=== PATIENT | male | born 1950 | race Caucasian/White ===

== ENCOUNTER 2021-07-24 08:45 | Day surgery (SDC) | payer MEDICARE ==
--- NOTE | 2021-07-23 09:51 | HP ---
HISTORY AND PHYSICAL CHIEF COMPLAINT: Left shoulder pain. HISTORY OF PRESENT ILLNESS: This patient is a 71-year-old [id number] retired gentleman who presents with left shoulder pain after an injury on 04/12/2021. He flipped his lawnmower over, landing on his left shoulder. He notes pain and stiffness ever since. He denies previous problems. He is having a difficult time with any attempted overhead use and at night. PAST MEDICAL HISTORY: Significant for asthma, hypertension, type 2 diabetes. PAST SURGICAL HISTORY: Significant for previous wrist fusion. CURRENT MEDICATIONS: Ibuprofen. ALLERGIES: He notes allergies to PENICILLIN. FAMILY HISTORY: Noncontributory. SOCIAL HISTORY: Negative for current tobacco or alcohol use. REVIEW OF SYSTEMS: Sixteen-point review of systems is otherwise reviewed and is noncontributory. PHYSICAL EXAMINATION: On examination, the patient is approximately 5 feet 7 inches, 270 pounds of endomorphic habitus. HEENT exam is nonfocal. Neck is supple. He is tender about the left shoulder anterior subacromial space. He has moderate crepitus. Active range of motion: Forward elevation 50 degrees, external rotation with the arm at side 30 degrees, internal rotation to the lateral hip. Passively I am able to forward-elevate him to 100 degrees. Motor strength 4+ over 5 for external rotation, 3/5 for abduction. Impingement test, Neer test and Speed test are positive. His distal neurovascular exam appears intact in the left upper extremity. MRI report left shoulder 07/06/2021 shows nonspecific synovitis along with increased signal along the supraspinatus insertion. IMPRESSION: 1. Left shoulder adhesive capsulitis/synovitis. 2. Left shoulder impingement with possible partial-thickness rotator cuff tear. RECOMMENDATIONS: I talked to the patient at length regarding his condition along with treatment options. At this point he remains quite symptomatic despite a period of rest, anti- inflammatories and home exercise program. After thorough discussion, he opts to proceed with surgery. We will plan to proceed with arthroscopic evaluation with possible rotator cuff debridement versus repair in addition to left shoulder manipulation under anesthesia along with possible partial synovectomy. Risks and benefits were discussed at length in layman's terms. We will likely perform that as an outpatient procedure. MMODL / IJN: [id number] /
[~2021-07-24 08:45] MED LIST: DEXAMETHASONE SOD PHOSPHATE 4 MG/ML 1 ML VIAL IV ONE; HYDROmorphone 0.5 MG/0.5 ML SYRINGE IVP PRN; LACTATED RINGERS 1,000 ML IV SCH; ONDANSETRON 4 MG/2 ML VIAL IVP ONE; ceFAZolin 3 GM in SODIUM CHLORIDE 0.9% 100 ML IVPB PRN
[2021-07-24] MEDS ORDERED: MIDAZOLAM 2 MG/2 ML VIAL IVP ONE ×2 (08:59→09:59)
[2021-07-24] MEDS ORDERED: ALBUTEROL NEBULIZED 2.5 MG/3 ML INHALATION STA (09:36)
[2021-07-24 09:46] LABS: Glucose,Whole Blood 137 mg/dL (75-99)
--- NOTE | 2021-07-24 10:07 | P.ANPRN ---
Procedure Note - Anesthesia - Nerve Block Performed Left Interscalene Single Time Out Performed: Yes ([id number]) Date of Procedure: 07/24/21 Procedure Start Time: 10:00 Procedure Stop Time: 10:04 Indication: Acute Post-Operative Pain, Analgesia, Dx/Pain Location, Requested by Surgeon Sedation Type: Sedate with meaningful contact maintained Preparation: Sterile Prep, Sterile Dressing Position: Sitting Catheter: None Needle Types: Pajunk Needle Gauge: 21 Ultrasound used to visualize needle placement: Yes Ultrasound used to observe medication spread: Yes Injectate: 0.5% Ropivacaine (see comment for volume) (20 mL mixed with 4 mg of dexamethasone) Blood Aspirated: No Pain Paresthesia on Injection Noted: No Resistance on Injection: Normal Image Stored and Saved: Yes Events: Uneventful and Well Tolerated
[2021-07-24] MEDS ORDERED: DEXAMETHASONE SOD PHOSPHATE 4 MG/ML 1 ML VIAL ONE (10:55)
[2021-07-24] MEDS ORDERED: LIDOCAINE 1% INJ 10MG/ML (20 ML MDV) ONE (10:55)
[2021-07-24] MEDS ORDERED: PHENYLEPHRINE-0.9% NACL SYG 1,000 MCG/10 ML SYRINGE ONE (10:55)
[2021-07-24] MEDS ORDERED: fentaNYL (PF) 50 MCG/ML 2 ML AMP ONE (10:55)
[2021-07-24] MEDS ORDERED: PROPOFOL 10 MG/ML 20 ML VIAL IV ONE (10:55)
[2021-07-24] MEDS ORDERED: SUCCINYLCHOLINE CHLORIDE VIAL 200 MG/10 ML VIAL IV ONE (10:55)
[2021-07-24] MEDS ORDERED: ROPIVACAINE 5 MG/ML 30 ML VIAL ONE (10:55)
[2021-07-24] MEDS ORDERED: EPINEPHrine (PF) 1 ML in SODIUM CHLORIDE 0.9% IRRIGATIO 3,000 ML IRRIGATION ONE ×8 (11:10)
--- NOTE | 2021-07-24 12:09 | P.OP ---
Date of Procedure: 07/24/21 Preoperative Diagnosis: Left partial thickness rotator cuff tear/glenohumeral joint synovitis Postoperative Diagnosis: Same in addition to partial tear interarticular portion along the biceps, clavicular joint arthritis Procedure(s) Performed: Left shoulder arthroscopic rotator cuff debridement/subacromial decompression/biceps tenotomy/distal clavicular resection Anesthesia: laly MARTINS Surgeon: Akbar Morris Bindery Leadperson #1: Sergey Robin Estimated Blood Loss (ml): 10 Pathology: none sent Condition: stable Disposition: PACU Indications for Procedure: The patient is a 71-year-old male who presents with progressive left shoulder pain and weakness after a previous injury despite conservative measures. A discussion of the risks and benefits of operative intervention versus continued conservative measures was made with patient. He opted to proceed with surgery. Operative risks to include infection, neurovascular injury, development of blood clots, possible incomplete resolution of symptoms, possible worsening symptoms and need for subsequent procedures was discussed. Informed consent was obtained. Operative Findings: As below Description of Procedure: The patient was brought to the operating room, and after induction of general anesthesia was placed in a beachchair position. A preoperative interscalene block was placed for postoperative analgesia. I examined the left shoulder. There was no gross block to passive motion or gross glenohumeral instability. The left upper extremity was prepped and draped in normal fashion. The bony outlines the acromion, distal clavicle, and coracoid process were outlined with a skin marker. The glenohumeral joint was inflated with 50 mL of saline utilizing a spinal needle from posterior approach. A posterior portal was made through a 5 mm skin incision 1 cm medial and inferior to the posterior lateral border time. A blunt trocar was used to easily into the joint. Diagnostic arthroscopy was performed. An anterior portal was made just lateral to the coracoid process entering the joint above the subscapularis tendon. The subscapularis tendon appeared to be intact. Anterior labrum was intact. The inferior recess was inspected. The posterior labrum was intact. There was a high-grade partial-thickness tear of the long head of the biceps involving interarticular portion. It was elected to proceed with release at this point. This was released from the superior labrum with electrocautery and was allowed to retract to the bicipital groove. On inspection the rotator cuff, the intra- articular portion appear to be intact. The arthroscope was placed into the subacromial space. A lateral portal was made 2 centimeters inferior to the anterior lateral border of the acromion. Significant bursitis was noted in the subacromial space. This was debrided with motorized shaver. The soft tissue on the undersurface of the acromion was debrided with a motorized shaver and electrocautery clearly defining the anterior medial and lateral borders as well as the distal clavicle. An anterior inferior acromioplasty was performed with a motorized ellen starting anterolateral, then extending this posteriorly, then extending this medially. I converted to a flat acromion and this was verified in the posterior and lateral viewing portals. The distal clavicle appear to be hypertrophic and was impingement subacromial space. The distal 4 mm was resected with a motorized ellen. The rotator cuff was inspected. There was a partial thickness tear involving the supraspinatus insertion. This involved approximately 10-20% of the tendon thickness. This was debrided back to stable base with a motorized shaver. The arthroscope was then removed. The portals were closed with simple 3-0 nylon sutures. A sterile dressing was applied in addition to a sling. The patient was then awoken from general anesthesia and transferred to recovery room in good condition. Blood loss was estimated at 10 mL. No complications were incurred. Sponge and needle counts were correct in the case. Sergey CABRERA assisted and the major components of the case to include arm positioning, arthroscopy, and debridement.
[2021-07-24 12:12] VITALS: TEMP 97.1
[2021-07-24 12:47] VITALS: BP 150/73; PULSE 95; RESP 15
== END 2021-07-24 13:44 | disposition home or self-care (01) ==
LOC: OR 08:45
PROVIDERS: ATTEND Orthopaedic Surgery
DX: M75.02 Adhesive capsulitis of left shoulder (principal); M65.9 Synovitis and tenosynovitis, unspecified; M25.812 Other specified joint disorders, left shoulder; M24.112 Other articular cartilage disorders, left shoulder; M13.812 Other specified arthritis, left shoulder; N28.9 Disorder of kidney and ureter, unspecified; J45.909 Unspecified asthma, uncomplicated; I10 Essential (primary) hypertension; E11.9 Type 2 diabetes mellitus without complications; Z98.1 Arthrodesis status; Z79.52 Long term (current) use of systemic steroids; Z79.899 Other long term (current) drug therapy; Z79.1 Long term (current) use of non-steroidal anti-inflammatories (NSAID); Z88.0 Allergy status to penicillin
CPT/HCPCS: 94640; 64415; 76942; 29823; 29824; J2250; J0330; J1100; J0690; J2405; J0171; J2001; J3010; J2795; J2370; J2704; J1170

== ENCOUNTER 2022-11-04 13:03 | Inpatient (IN) | payer MEDICARE ==
[2022-11-04] MEDS ORDERED: KETOROLAC 15 MG/ML 1 ML VIAL IM STA (13:33)
--- NOTE | 2022-11-04 13:39 | ED ---
General Adult HPI - General Chief complaint: Fall Stated complaint: Fell off porch L knee and leg pain Time Seen by Provider: 11/04/22 13:18 Source: patient, RN notes reviewed Mode of arrival: ambulatory Limitations: no limitations - History of Present Illness Initial comments: 72-year-old male presented to the emergency department with chief complaint of left leg pain. He states that he fell on his porch on and has had progressive increase in pain since then in his left leg. He reports increase in swelling since that time. He states that he has been elevating. He denies taking anything for pain. He states the pain is worse with even light touch. Denies renal and hepatic impairment. Denies shortness of breath, chest pain. Denies hitting his head, loss of consciousness. Denies fever. Past medical history includes diabetes and hypertension. - Related Data Home Medications Medication Instructions Recorded Confirmed Glimepiride [Amaryl] 2 mg PO DAILY 07/18/21 11/04/22 Pioglitazone [Actos] 45 mg PO DAILY 07/18/21 11/04/22 lisinopriL [Zestril] 20 mg PO DAILY 07/18/21 11/04/22 amLODIPine [Norvasc] 2.5 mg PO DAILY 11/04/22 11/04/22 metFORMIN HCL ER [Glucophage XR] 1,000 mg PO BID 11/04/22 11/04/22 Allergies Allergy/AdvReac Type Severity Reaction Status Date / Time Penicillins Allergy Unknown Verified 11/04/22 18:10 Childhood Review of Systems ROS Statement: Those systems with pertinent positive or pertinent negative responses have been documented in the HPI. ROS Other: All systems not noted in ROS Statement are negative. Past Medical History Past Medical History: Asthma, Diabetes Mellitus, Hypertension History of Any Multi-Drug Resistant Organisms: None Reported Past Surgical History: Orthopedic Surgery Additional Past Surgical History / Comment(s): left shoulder, eye surgery Past Psychological History: No Psychological Hx Reported Smoking Status: Never smoker Past Alcohol Use History: None Reported Past Drug Use History: None Reported General Exam Limitations: no limitations General appearance: alert, in no apparent distress Head exam: Present: atraumatic, normocephalic, normal inspection Eye exam: Present: normal appearance Neck exam: Present: normal inspection. Absent: tenderness, meningismus, lymphadenopathy Respiratory exam: Present: normal lung sounds bilaterally. Absent: respiratory distress, wheezes, rales, rhonchi, stridor Cardiovascular Exam: Present: regular rate, normal rhythm, normal heart sounds. Absent: systolic murmur, diastolic murmur, rubs, gallop, clicks Extremities exam: Present: other (Tenderness to palpation of left leg at the knee, left chapa even with light touch, DP pulses 2+, edema to the left lower extremity, abrasion to the left knee) Back exam: Present: normal inspection Neurological exam: Present: alert, oriented X3 Psychiatric exam: Present: normal affect, normal mood Skin exam: Present: warm, dry, intact, erythema, abrasion (Abrasion to left knee), other (Edema to left lower extremity). Absent: rash Course Vital Signs 11/04/22 11/04/22 11/04/22 13:07 16:46 17:42 Temperature 98.3 F 97.9 F Pulse Rate 99 72 80 Respiratory 18 16 16 Rate Blood Pressure 153/86 140/68 181/80 O2 Sat by Pulse 98 99 96 Oximetry 11/04/22 11/04/22 18:14 18:20 Temperature 98.2 F 98.2 F Pulse Rate 76 76 Respiratory 16 Rate Blood Pressure 160/62 160/72 O2 Sat by Pulse 96 96 Oximetry Medical Decision Making - Medical Decision Making Was pt. sent in by a medical professional or institution ([facility], [facility], urgent care, hospital, or residential...) When possible be specific @ -No Did you speak to anyone other than the patient for history (EMS, parent, family, police, friend...)? What history was obtained from this source @ -No Did you review nursing and triage notes (agree or disagree)? Why? @ -I reviewed and agree with nursing and triage notes Were old charts reviewed (outside hosp., previous admission, EMS record, old EKG, old radiological studies, urgent care reports/EKG's, residential records)? Report findings @ -No old charts were reviewed Differential Diagnosis (chest pain, altered mental status, abdominal pain women, abdominal pain men, vaginal bleeding, weakness, fever, dyspnea, syncope, headache, dizziness, GI bleed, back pain, seizure, CVA, palpatations, mental health, musculoskeletal)? @ -Differential Musculoskeletal Muscular strain, contusion, ligament sprain, fracture, arthritis, septic arthritis, bursitis, cellulitis, muscle spasm, nerve compression, DVT, arterial occlusion, herpes zoster, electrolyte abnormality, tumor.... This is not meant to be in all inclusive list EKG interpreted by me (3pts min.). @ -None X-rays interpreted by me (1pt min.). @ -X-ray of left knee showed no acute fracture, x-ray of left tib-fib show no acute fracture CT interpreted by me (1pt min.). @ -CT of left knee showed suspect a torn and extruded medial meniscus, underlying bicompartmental OA, anterior soft tissue swelling, small knee joint effusion, small Ray's cyst U/S interpreted by me (1pt. min.). @ -Ultrasound left lower extremity showed no DVT What testing was considered but not performed or refused? (CT, X-rays, U/S, labs)? Why? @ -None What meds were considered but not given or refused? Why? @ -None Did you discuss the management of the patient with other professionals (professionals i.e. , PA, [facility] [employer], lab, RT, psych nurse, social media marketing specialist, corporation lawyer, teacher, life science technical officer, manager of case)? Give summary @ -No Was smoking cessation discussed for >3mins.? @ -No Was critical care preformed (if so, how long)? @ -No Were there social determinants of health that impacted care today? How? (Homelessness, low income, unemployed, alcoholism, drug addiction, transp ortation, low edu. Level, literacy, decrease access to med. care, assisted, rehab)? @ -No Was there de-escalation of care discussed even if they declined (Discuss DNR or withdrawal of care, Hospice)? DNR status @ -No What co-morbidities impacted this encounter? (DM, HTN, Smoking, COPD, CAD, Cancer, CVA, ARF, Chemo, Hep., AIDS, mental health diagnosis, sleep apnea, morbid obesity)? @ -DM Was patient admitted / discharged? Hospital course, mention meds given and route, prescriptions, significant lab abnormalities, going to OR and other pertinent info. @ -Admitted. Patient presented to emergency department with chief complaint of left leg pain following a fall. Patient is very tender to the left lower extremity from the knee down to the ankle. X-ray of the left knee and left tib- fib were obtained which showed no acute fracture. Ultrasound of the left lower extremity showed no DVT. Patient was given 15 mg of Toradol and 2 mg of morphine which did not help his pain. Upon reevaluation after the pain medication he states that his pain was still 10 out of 10. Patient was evaluated by my attending Dr. Adam who recommended labs and CT of the knee be obtained. CT of the left knee was obtained which showed suspected torn and extruded medial meniscus. CBC showed WBC 5.3, hemoglobin 13.2, hematocrit 40.1; CMP showed sodium 140, potassium 4.7, chloride 102, creatinine 1.2; creatinine kinase 199. Patient admitted for pain control and orthopedic evaluation in the morning. Dr. Adam spoke with Dr. Dunn, the admitting physician. Patient stable at time of admission. Undiagnosed new problem with uncertain prognosis? @ -No Drug Therapy requiring intensive monitoring for toxicity (Heparin, Nitro, Insulin, Cardizem)? @ -No Were any procedures done? @ -No Diagnosis/symptom? @ -Left knee injury Acute, or Chronic, or Acute on Chronic? @ -acute Uncomplicated (without systemic symptoms) or Complicated (systemic symptoms)? @ -uncomplicated Side effects of treatment? @ -No Exacerbation, Progression, or Severe Exacerbation? @ -No Poses a threat to life or bodily function? How? (Chest pain, [place], [place], pneumonia, PE, COPD, DKA, ARF, appy, cholecystitis, CVA, Diverticulitis, Homicidal, Suicidal, threat to staff... and all critical care pts) @ -No - Lab Data Result diagrams: 11/04/22 16:00 11/04/22 16:00 Lab Results 11/04/22 11/04/22 11/04/22 Range/Units 16:00 16:00 16:00 WBC 5.3 (3.8-10.6) k/uL RBC 4.31 (4.30-5.90) m/uL Hgb 13.2 (13.0-17.5) gm/dL Hct 40.1 (39.0-53.0) % MCV 92.9 (80.0-100.0) fL MCH 30.7 (25.0-35.0) pg MCHC 33.0 (31.0-37.0) g/dL RDW 14.4 (11.5-15.5) % Plt Count 202 (150-450) k/uL MPV 8.2 Neutrophils % 72 % Lymphocytes % 17 % Monocytes % 7 % Eosinophils % 2 % Basophils % 0 % Neutrophils # 3.9 (1.3-7.7) k/uL Lymphocytes # 0.9 L (1.0-4.8) k/uL Monocytes # 0.4 (0-1.0) k/uL Eosinophils # 0.1 (0-0.7) k/uL Basophils # 0.0 (0-0.2) k/uL PT 9.5 (9.0-12.0) sec INR 0.9 (<1.2) APTT 22.2 (22.0-30.0) sec Sodium 140 (137-145) mmol/L Potassium 4.7 (3.5-5.1) mmol/L Chloride 102 (98-107) mmol/L Carbon Dioxide 28 (22-30) mmol/L Anion Gap 10 mmol/L BUN 21 H (9-20) mg/dL Creatinine 1.20 (0.66-1.25) mg/dL Est GFR (CKD-EPI)AfAm 71 (>60 ml/min/1.73 sqM) Est GFR (CKD-EPI)NonAf 61 (>60 ml/min/1.73 sqM) Glucose 191 H (74-99) mg/dL Calcium 8.8 (8.4-10.2) mg/dL Total Bilirubin 0.7 (0.2-1.3) mg/dL AST 33 (17-59) U/L ALT 28 (4-49) U/L Alkaline Phosphatase 70 (38-126) U/L Creatine Kinase 199 H (55-170) U/L Total Protein 7.8 (6.3-8.2) g/dL Albumin 4.4 (3.5-5.0) g/dL Disposition Clinical Impression: Fall, Left knee injury Disposition: ADMITTED IP TO THIS HOSP Condition: Stable Is patient prescribed a controlled substance at d/c from ED?: No
--- NOTE | 2022-11-04 14:05 | XR ---
EXAMINATION TYPE: XR tibia fibula LT DATE OF EXAM: 11/04/2022 COMPARISON: None HISTORY: Fall, pain TECHNIQUE: 2 view left tibia and fibula FINDINGS: There is narrowing of the medial compartment joint space of the left knee. Small medial tib ial plateau spurs present. Ankle mortise is intact. Soft tissues may have some swelling of the dorsal calf. Follow up exams can be performed 7-10 days from acute trauma for continued pain.. IMPRESSION: 1. No acute osseous abnormality left tibia and fibula
--- NOTE | 2022-11-04 14:07 | XR ---
EXAMINATION TYPE: XR knee complete LT DATE OF EXAM: 11/04/2022 COMPARISON: None HISTORY: Fall, pain TECHNIQUE: 3 view left knee FINDINGS: There is narrowing of the medial compartment joint space. Small medial tibial plateau and m edial femoral condylar spurs are present. No joint effusion is evident. Small posterior patellar spur s are present superiorly and inferiorly. No acute fracture or dislocation is evident. IMPRESSION: 1. No acute osseous abnormality left knee. 2. Mild to moderate degenerative changes medial compartment left knee
--- NOTE | 2022-11-04 15:04 | US ---
EXAMINATION TYPE: US venous doppler duplex LE LT DATE OF EXAM: 11/04/2022 2:45 PM COMPARISON: NONE CLINICAL INDICATION: Male, 72 years old with history of pain, swelling; Left leg pain SIDE PERFORMED: Left TECHNIQUE: The lower extremity deep venous system is examined utilizing real time linear array sonog john with graded compression, doppler sonography and color-flow sonography. VESSELS IMAGED: Common Femoral Vein Deep Femoral Vein Greater Saphenous Vein * Femoral Vein Popliteal Vein Small Saphenous Vein * Proximal Calf Veins (* superficial vessels) *Difficult and limited study due to patient body habitus Left Leg: Appears negative for DVT Left popliteal fossa - 4.7 x 1.3 x 3.3cm Ray's cyst IMPRESSION: 1. Left lower extremity ultrasound negative for deep venous thrombosis. Exam is somewhat limited due to body habitus. 2. Left popliteal fossa cyst
[2022-11-04] MEDS ORDERED: MORPHINE SULFATE 2 MG/ML SYRINGE IVP ONE (15:35)
[2022-11-04 16:16] LABS: Basophils % (A) 0 %; Eosinophils # (A) 0.1 k/uL (0-0.7); Eosinophils % (A) 2 %; HCT 40.1 % (39.0-53.0); HGB 13.2 gm/dL (13.0-17.5); Lymphocytes # (A) 0.9 k/uL (1.0-4.8); Lymphocytes % (A) 17 %; MCH 30.7 pg (25.0-35.0); MCV 92.9 fL (80.0-100.0); Mean Platelet Volume 8.2; Monocytes # (A) 0.4 k/uL (0-1.0); Monocytes % (A) 7 %; Neutrophils # (A) 3.9 k/uL (1.3-7.7); Neutrophils % (A) 72 %; Platelet Count 202 k/uL (150-450); RBC 4.31 m/uL (4.30-5.90); RDW 14.4 % (11.5-15.5); WBC 5.3 k/uL (3.8-10.6)
[2022-11-04 16:30] LABS: INR 0.9 (<1.2); Partial Thromboplastin Time 22.2 sec (22.0-30.0); Prothrombin Time 9.5 sec (9.0-12.0)
[2022-11-04 16:44] LABS: Albumin 4.4 g/dL (3.5-5.0); Calcium 8.8 mg/dL (8.4-10.2); Total Bilirubin 0.7 mg/dL (0.2-1.3); Total Protein 7.8 g/dL (6.3-8.2)
--- NOTE | 2022-11-04 16:47 | CT ---
EXAMINATION TYPE: CT knee LT wo con DATE OF EXAM: 11/04/2022 COMPARISON: Radiograph same day HISTORY: 72-year-old male LT knee pain after fall. TECHNIQUE: Contiguous axial scanning of the left knee without IV contrast. Coronal and sagittal recon structions performed. CT DLP: 320.6 mGycm Automated exposure control for dose reduction was used. FINDINGS: There is anterior soft tissue swelling noted. Extensor mechanism appears intact. A small knee joint e ffusion is nonspecific. Flat lateral patellar tilt/translation. There is tricompartmental degenerative spurring. There is lisa rowing of the medial compartment cartilage and joint space and suspected torn and extruded medial men iscus. The remaining small Ray's cyst measuring 5.6 x 4.0 x 1.5 cm containing a 8 mm loose body. No acute fracture, subluxation, dislocation is seen. IMPRESSION: 1. SUSPECT A TORN AND EXTRUDED MEDIAL MENISCUS. UNDERLYING BICOMPARTMENTAL OA, PARTICULARLY INVOLVING THE MEDIAL COMPARTMENT. 2. ANTERIOR SOFT TISSUE SWELLING. SMALL KNEE JOINT EFFUSION. SMALL RAY'S CYST MEASURING 5.6 X 4.0 C M. 3. NO ACUTE OSSEOUS ABNORMALITY SEEN.
[2022-11-04 16:48] LABS: Potassium 4.7 mmol/L (3.5-5.1)
[2022-11-04] MEDS ORDERED: HYDROmorphone 0.5 MG/0.5 ML SYRINGE IVP STA (17:13)
[2022-11-04] MEDS ORDERED: HYDROmorphone 0.5 MG/0.5 ML SYRINGE IVP PRN (17:19)
[2022-11-04] MEDS ORDERED: NALOXONE 0.4 MG/ML 1 ML VIAL IV PRN (17:19)
[2022-11-04] MEDS ORDERED: ACETAMINOPHEN TAB 325 MG TAB PO PRN (17:19)
[2022-11-04] MEDS ORDERED: DEXTROSE 50% SYRINGE 50 ML IVP PRN ×2 (20:03)
[2022-11-04] MEDS ORDERED: ONDANSETRON 4 MG/2 ML VIAL IVP PRN (20:04)
[2022-11-04] MEDS: INSULIN ASPART (NovoLOG) 100 UNIT/ML VIAL SQ SCH (20:28)
[2022-11-04] MEDS: metFORMIN 500 MG TAB PO SCH (20:28)
[2022-11-04] MEDS: HEPARIN SODIUM,PORCINE/PF 5,000 UNIT/0.5 ML SYRINGE SQ SCH (20:28)
[2022-11-04] MEDS: HYDROmorphone 1 MG/ML 1 ML SYRINGE IVP PRN (20:28)
[2022-11-05] MEDS: HYDROmorphone 1 MG/ML 1 ML SYRINGE IVP PRN ×5 (01:10→20:18)
[2022-11-05] MEDS: PANTOPRAZOLE 40 MG TABLET PO SCH (05:34)
[2022-11-05 05:35] LABS: Glucose,Whole Blood 129 mg/dL (70-110)
[2022-11-05] MEDS: INSULIN ASPART (NovoLOG) 100 UNIT/ML VIAL SQ SCH ×4 (06:27→20:18)
[2022-11-05] MEDS: HEPARIN SODIUM,PORCINE/PF 5,000 UNIT/0.5 ML SYRINGE SQ SCH ×2 (07:48→20:17)
[2022-11-05] MEDS: GLIMEPIRIDE 2 MG TAB PO SCH (07:48)
[2022-11-05] MEDS: metFORMIN 500 MG TAB PO SCH ×2 (07:48→20:17)
[2022-11-05] MEDS: amLODIPine 2.5 MG TAB PO SCH (07:48)
[2022-11-05] MEDS: lisinopriL 20 MG TAB PO SCH (07:48)
[2022-11-05] MEDS: PIOGLITAZONE 45 MG TAB PO SCH (07:48)
--- NOTE | 2022-11-05 09:42 | P.CNOR ---
History of Present Illness - HPI Consult date: 11/05/22 Requesting physician: Krissy Hughes Consult reason: other (Left meniscus injury) History of present illness: History of Presenting Illness Patient is a pleasant 72-year-old male who presented to the ER due to increased left lower extremity pain. Patient states that on , 10/31/2022 he was ambulating on his front porch and when going down the stairs he lost his footing and fell onto his left knee. Patient denies hitting his head or LOC. Patient states he is not on any blood thinners. He does report that he was able to get himself up and felt that he was doing ok. Throughout the weekend he noticed an increase in swelling and pain. He states he is unable to touch the anterior portion of his lower left leg due to increase pain. He has been utilizing elevation and ice therapy. He denies taking any OTC medications for pain. Patient does have a medical history of HTN, asthma, and DM. He has an orthopedic history of his left shoulder. He denies any alcohol, tobacco, or drug use. Patient does live with his spouse and is normally independent. Patient seen and examined this morning. Patient was sitting at the edge of bed with immobilizer present on left lower extremity. Patient does have complaint of increasing pain of the left lower extremity, medications reviewed. Patient was able to reposition himself in bed to allow for immobilizer to be removed for assessment. Patient does have limited ROM of the left knee due to pain and stiffness. Patient states he has been ambulatory in room. Patient denies any fever, chills, or shortness of breath. Review of Systems Pertinent positives and negatives as discussed in HPI, a complete review of systems was performed and all other systems are negative. Physical Examination Patient is awake, alert and oriented. No acute distress. Well developed, hydrated and nourished. Appears stated age. They do not appear septic. On exam, the patient has an abrasion that has scabbed over on the left knee. He has bruising noted that extends down the lower portion of the leg with edema. There is an area on the left chapa that is developing redness, patient has severe tenderness to palpation over this region. Skin is warm, dry. Appropriate color for ethnicity. Nailbeds pink with no cya nosis or clubbing. Upper and right lower extremities are atraumatic in appearance without tendernes s or deformity. No swelling or erythema. Limited ROM to the left knee due to pain and stiffness. FROM to the upper and right lower extremities. Muscle strength is 5/5 bilaterally. Neurosurgical Physician Assistant strength is normal bilaterally. Dorsi/plantar flexion is normal bilaterally. Tendon function is normal. Capillary refill is less than 3 seconds in all extremities. Palpable dorsalis pedis and posterior tibial pulses. Sensation is intact bilaterally, They are intact to light touch sensation in L2 to S1 nerve distribution. Reflexes 2+ bilaterally. Cranial nerves are intact. Compartments are soft and compressible. Assessment and Plan Fall from standing Left knee injury Cellulitis of the left chapa At this time we do not recommend any emergent/urgent orthopedic surgical intervention. Patient may follow-up with Dr. Escobedo's office for further evaluation as needed. 2. Appreciate medical management, recommend IV antibiotics. 3. Pain management - Continue with oral and IV pain medications prn, ice and elevate. 4. GI prophylaxis - protonix 5. DVT prophylaxis - heparin 6. PT/OT - weightbearing as tolerated with a walker as needed. Patient does not require an immobilzer at this time. 7. Appreciate consult I reviewed and discussed this case with my attending Dr. Escobedo, whom has reviewed this chart and films and is in agreement with assessment and plan of care as outlined above. I have personally seen and examined the patient, performed the documentation and the assessment and plan as written. Number of minutes spent on the visit: 20m. Past Medical History Past Medical History: Asthma, Diabetes Mellitus, Hypertension History of Any Multi-Drug Resistant Organisms: None Reported Past Surgical History: Orthopedic Surgery Additional Past Surgical History / Comment(s): left shoulder, eye surgery Past Psychological History: No Psychological Hx Reported Smoking Status: Never smoker Past Alcohol Use History: None Reported Past Drug Use History: None Reported Medications and Allergies Home Medications Medication Instructions Recorded Confirmed Type Glimepiride [Amaryl] 2 mg PO DAILY 07/18/21 11/04/22 History Pioglitazone [Actos] 45 mg PO DAILY 07/18/21 11/04/22 History lisinopriL [Zestril] 20 mg PO DAILY 07/18/21 11/04/22 History amLODIPine [Norvasc] 2.5 mg PO DAILY 11/04/22 11/04/22 History metFORMIN HCL ER [Glucophage XR] 1,000 mg PO BID 11/04/22 11/04/22 History Allergies Allergy/AdvReac Type Severity Reaction Status Date / Time Penicillins Allergy Unknown Verified 11/04/22 18:10 Childhood Results - Labs Labs: Abnormal Lab Results - Last 24 Hours (Table) 11/04/22 11/04/22 11/05/22 Range/Units 16:00 16:00 05:33 Lymphocytes # 0.9 L (1.0-4.8) k/uL BUN 21 H (9-20) mg/dL Glucose 191 H (74-99) mg/dL POC Glucose (mg/dL) 129 H (70-110) mg/dL Creatine Kinase 199 H (55-170) U/L H & H 11/04/22 Range/Units 16:00 Hgb 13.2 (13.0-17.5) gm/dL Hct 40.1 (39.0-53.0) % Coagulation 11/04/22 Range/Units 16:00 INR 0.9 (<1.2) Result Diagrams: 11/04/22 16:00 11/04/22 16:00 - Diagnostic results Knee x-ray: image reviewed (Imaging demonstrates mild to moderate degenerative changes medial compartment of the left knee, no acute fracture or dislocation is evident) Knee CT: image reviewed (There is anterior soft tissue swelling noted. A small knee joint effusion is nonspecific. There is a small Ray's cyst measuring 5.6 x 4.0 x 1.5 cm. Underlying bicompartmental OA. There is narrowing of the medial compartment cartilage and joint space.)
[2022-11-05] MEDS ORDERED: VANCOMYCIN IV PER PHARMACY 1 EACH MISC MISCELLANE PRN (09:48)
[2022-11-05] MEDS: VANCOMYCIN 2,000 MG in SODIUM CHLORIDE 0.9% 500 ML 500 ML IVPB SCH (10:25)
[2022-11-05] MEDS: HYDROcodone/APAP 10-325MG 1 EACH TAB PO PRN ×2 (11:31→23:16)
[2022-11-05 12:03] LABS: Glucose,Whole Blood 204 mg/dL (70-110)
--- NOTE | 2022-11-05 12:33 | P.HPIM ---
History of Present Illness H&P Date: 11/05/22 history of present illness;Patient is 72-year-old gentleman with past medical history significant for HTN, asthma,DMwho presented to the ER because of left knee pain. Patient stated that last week while ambulating in his house he was going down the stairs when he lost his footing and fell on his left knee. Following that patient started noticing worsening pain and swelling of his left knee. Patient was unable to bear weight as well. Because of worsening knee pain patient came to the ER, initial lab work done showed initial lab work done in the ER showed white count 5.3, hemoglobin 13.2, platelet count 202, sodium 140, potassium 4.7, BUN 21, creatinine 1.2 x-ray tibia-fibula showed no acute osseous abnormality of left tibia and fibula Duplex ultrasound negative for DVT of left lower extremity CT of left knee showed torn and extruded medial meniscus patient admitted for further evaluation and treatment REVIEW OF SYSTEMS: CONSTITUTIONAL: No fever, no malaise, no fatigue. HEENT: No recent visual problems or hearing problems. Denied any sore throat. CARDIOVASCULAR: No chest pain, orthopnea, PND, no palpitations, no syncope. PULMONARY: No shortness of breath, no cough, no hemoptysis. GASTROINTESTINAL: No diarrhea, no nausea, no vomiting, no abdominal pain. NEUROLOGICAL: No headaches, no weakness, no numbness. HEMATOLOGICAL: Denies any bleeding or petechiae. GENITOURINARY: Denies any burning micturition, frequency, or urgency. MUSCULOSKELETAL/RHEUMATOLOGICAL: as mentioned in HPI ENDOCRINE: Denies any polyuria or polydipsia. The rest of the 14-point review of systems is negative. PHYSICAL EXAMINATION: GENERAL: The patient is alert and oriented x3, not in any acute distress. Well developed, well nourished. HEENT: Pupils are round and equally reacting to light. EOMI. No scleral icterus. No conjunctival pallor. Normocephalic, atraumatic. No pharyngeal erythema. No thyromegaly. CARDIOVASCULAR: S1 and S2 present. No murmurs, rubs, or gallops. PULMONARY: Chest is clear to auscultation, no wheezing or crackles. ABDOMEN: Soft, nontender, nondistended, normoactive bowel sounds. No palpable organomegaly. MUSCULOSKELETAL: No joint swelling or deformity. EXTREMITIES: left knee tender,abrasion over left knee with bruising, erythema in the chapa area NEUROLOGICAL: Gross neurological examination did not reveal any focal deficits. SKIN: No rashes. Assessment and plan Fall from standing Left knee injury Cellulitis of the left chapa hypertension Diabetes mellitus plan; monitor vital signs Monitor CBC Monitor CMP Continue wound care Start patient on pharmacy dose vancomycin consult ID. Continue pain management Orthopedics evaluated the patient recommended conservative management, recommend IV antibiotics monitor blood sugar levels, continue sliding scale insulin Continue Norvasc PT and OT evaluation Past Medical History Past Medical History: Asthma, Diabetes Mellitus, Hypertension History of Any Multi-Drug Resistant Organisms: None Reported Past Surgical History: Orthopedic Surgery Additional Past Surgical History / Comment(s): left shoulder, eye surgery Past Psychological History: No Psychological Hx Reported Smoking Status: Never smoker Past Alcohol Use History: None Reported Past Drug Use History: None Reported Medications and Allergies Home Medications Medication Instructions Recorded Confirmed Type RX: Glimepiride [Amaryl] 2 mg PO DAILY 07/18/21 11/04/22 History RX: Pioglitazone [Actos] 45 mg PO DAILY 07/18/21 11/04/22 History RX: lisinopriL [Zestril] 20 mg PO DAILY 07/18/21 11/04/22 History amLODIPine [Norvasc] 2.5 mg PO DAILY 11/04/22 11/04/22 History metFORMIN HCL ER [Glucophage XR] 1,000 mg PO BID 11/04/22 11/04/22 History Allergies Allergy/AdvReac Type Severity Reaction Status Date / Time Penicillins Allergy Unknown Verified 11/04/22 18:10 Childhood Physical Exam Vitals: Vital Signs Temp Pulse Pulse Resp BP BP BP 11/05/22 08:00 77 16 11/05/22 07:00 97.7 F 77 16 168/78 11/05/22 02:00 97.4 F L 77 17 156/103 11/04/22 20:00 98.1 F 86 16 131/79 11/04/22 18:20 98.2 F 76 16 160/72 11/04/22 18:14 98.2 F 76 160/62 11/04/22 17:42 80 16 181/80 11/04/22 16:46 97.9 F 72 16 140/68 11/04/22 13:07 98.3 F 99 18 153/86 Pulse Ox 11/05/22 08:00 11/05/22 07:00 98 11/05/22 02:00 97 11/04/22 20:00 98 11/04/22 18:20 96 11/04/22 18:14 96 11/04/22 17:42 96 11/04/22 16:46 99 11/04/22 13:07 98 Intake and Output 11/04/22 11/05/22 11/05/22 22:59 06:59 14:59 Intake Total 118 Balance 118 Intake: Oral 118 Other: Voiding Method Toilet Toilet # Voids 1 2 Weight 127.006 kg Results CBC & Chem 7: 11/04/22 16:00 11/04/22 16:00 Labs: Abnormal Lab Results - Last 24 Hours (Table) 11/04/22 11/04/22 11/05/22 Range/Units 16:00 16:00 05:33 Lymphocytes # 0.9 L (1.0-4.8) k/uL BUN 21 H (9-20) mg/dL Glucose 191 H (74-99) mg/dL POC Glucose (mg/dL) 129 H (70-110) mg/dL Creatine Kinase 199 H (55-170) U/L
[2022-11-05 20:11] LABS: Glucose,Whole Blood 159 mg/dL (70-110)
[2022-11-05 20:11] LABS: Glucose,Whole Blood 143 mg/dL (70-110)
[2022-11-05 20:11] LABS: Glucose,Whole Blood 238 mg/dL (70-110)
--- NOTE | 2022-11-05 21:15 | P.CONS ---
History of Present Illness - Reason for Consult Consult date: 11/05/22 Left lower extremity cellulitis Requesting physician: Dariel Weeks - Chief Complaint Left knee and leg pain and swelling x days - History of Present Illness Patient is a 72-year-old male with a past medical history negative for diabetes mellitus hypertension asthma patient presenting to the ER for evaluation of increased left lower extremity pain apparently about 5 days ago patient was ambulating on his front porch and he was going downstairs he lost his footing and fell onto his left knee patient did have abrasion to the left knee area and area of swelling erythema to the left lower leg patient apparently has been using elevation and ice therapy however he noticed to have increasing pain and swelling redness patient describes the pain to be sharp almost 10 out of 10 in nature cannot touch the area he did have mild abrasion on the knee area in the area of erythema to the left lower leg patient denies any fever or any chills patient did have a normal white count creatinine has been normal liver enzymes are normal patient did have a CT of the knee suspect on an extended medial meniscus underlying bicompartmental OA with anterior soft tissue swelling and small effusion patient has been started on vancomycin concerning for cellulitis has been evaluated by orthopedics recommending no surgical invention at this point Review of Systems Positive point and negatives has been mentioned in the HPI, complete review of systems was performed and all other systems are negative Past Medical History Past Medical History: Asthma, Diabetes Mellitus, Hypertension History of Any Multi-Drug Resistant Organisms: None Reported Past Surgical History: Orthopedic Surgery Additional Past Surgical History / Comment(s): left shoulder, eye surgery Past Psychological History: No Psychological Hx Reported Smoking Status: Never smoker Past Alcohol Use History: None Reported Past Drug Use History: None Reported Medications and Allergies Home Medications Medication Instructions Recorded Confirmed Type Glimepiride [Amaryl] 2 mg PO DAILY 07/18/21 11/04/22 History Pioglitazone [Actos] 45 mg PO DAILY 07/18/21 11/04/22 History lisinopriL [Zestril] 20 mg PO DAILY 07/18/21 11/04/22 History amLODIPine [Norvasc] 2.5 mg PO DAILY 11/04/22 11/04/22 History metFORMIN HCL ER [Glucophage XR] 1,000 mg PO BID 11/04/22 11/04/22 History Doxycycline Hyclate 100 mg PO BID 7 Days #14 tab 11/14/22 Rx Allergies Allergy/AdvReac Type Severity Reaction Status Date / Time Penicillins Allergy Unknown Verified 11/04/22 18:10 Childhood Physical Exam Vitals: Vital Signs Temp Pulse Pulse Resp BP BP BP 11/05/22 08:00 77 16 11/05/22 07:00 97.7 F 77 16 168/78 11/05/22 02:00 97.4 F L 77 17 156/103 11/04/22 20:00 98.1 F 86 16 131/79 11/04/22 18:20 98.2 F 76 16 160/72 11/04/22 18:14 98.2 F 76 160/62 11/04/22 17:42 80 16 181/80 11/04/22 16:46 97.9 F 72 16 140/68 11/04/22 13:07 98.3 F 99 18 153/86 Pulse Ox 11/05/22 08:00 11/05/22 07:00 98 11/05/22 02:00 97 11/04/22 20:00 98 11/04/22 18:20 96 11/04/22 18:14 96 11/04/22 17:42 96 11/04/22 16:46 99 11/04/22 13:07 98 Intake and Output 11/04/22 11/05/22 11/05/22 22:59 06:59 14:59 Intake Total 118 Balance 118 Intake: Oral 118 Other: Voiding Method Toilet Toilet # Voids 1 2 Weight 127.006 kg GENERAL DESCRIPTION: Elderly male lying in bed, no distress. No tachypnea or accessory muscle of respiration use. HEENT: Shows Pallor , no scleral icterus. Oral mucous membrane is dry. No pharyngeal erythema or thrush NECK: Trachea central, no thyromegaly. LUNGS: Unlabored breathing. Clear to auscultation anteriorly. No wheeze or crackle. HEART: S1, S2, regular rate and rhythm. No loud murmur ABDOMEN: Soft, no tenderness , guarding or rigidity, no organomegaly EXTREMITIES: Patient did have a scratch and bruising to the left knee area with some surrounding redness and did have an area of swelling and redness to left leg which is warm and tender to touch. SKIN: No rash, no masses palpable. NEUROLOGICAL: The patient is awake, alert, oriented x3, mood and affect normal. Results CBC & Chem 7: 11/13/22 05:20 11/13/22 05:20 Labs: Abnormal Lab Results - Last 24 Hours (Table) 11/04/22 11/04/22 11/05/22 Range/Units 16:00 16:00 05:33 Lymphocytes # 0.9 L (1.0-4.8) k/uL BUN 21 H (9-20) mg/dL Glucose 191 H (74-99) mg/dL POC Glucose (mg/dL) 129 H (70-110) mg/dL Hemoglobin A1c (0.0-6.0) % Creatine Kinase 199 H (55-170) U/L 11/05/22 Range/Units 05:41 Lymphocytes # (1.0-4.8) k/uL BUN (9-20) mg/dL Glucose (74-99) mg/dL POC Glucose (mg/dL) (70-110) mg/dL Hemoglobin A1c 7.5 H (0.0-6.0) % Creatine Kinase (55-170) U/L Assessment and Plan (1) Left leg cellulitis Current Visit: Yes Status: Acute Code(s): L03.116 - CELLULITIS OF LEFT LOWER LIMB SNOMED Code(s): 026878833 Plan: 1patient presented to hospital with left knee and leg pain in this patient who did have a history of fall about 5 days ago and did have evidence of meniscal tear as seen on the CT with evidence of effusion and soft tissue swelling poss ibly related to trauma and hematoma underlying cellulitis left leg but not excluded especially to the left lower leg recently more erythematous and warm to touch 2-we will obtain blood cultures CRP 3-marked area of the redness 4-vancomycin pharmacy to dose with a target trough of 15 while watching kidney function and Vanco trough closely. We will follow on clinical condition and cultures to further adjust medication if needed Thank you for this consultation we will follow the patient along with you Time with Patient: Greater than 30
[2022-11-06] MEDS: HYDROmorphone 1 MG/ML 1 ML SYRINGE IVP PRN ×4 (00:18→14:34)
[2022-11-06] MEDS: VANCOMYCIN 2,000 MG in SODIUM CHLORIDE 0.9% 500 ML 500 ML IVPB SCH ×2 (01:48→17:56)
[2022-11-06 06:09] LABS: Glucose,Whole Blood 96 mg/dL (70-110)
[2022-11-06] MEDS: INSULIN ASPART (NovoLOG) 100 UNIT/ML VIAL SQ SCH ×4 (06:10→21:13)
[2022-11-06] MEDS: PANTOPRAZOLE 40 MG TABLET PO SCH (06:23)
[2022-11-06] MEDS: amLODIPine 2.5 MG TAB PO SCH (08:37)
[2022-11-06] MEDS: metFORMIN 500 MG TAB PO SCH ×2 (08:37→20:31)
[2022-11-06] MEDS: PIOGLITAZONE 45 MG TAB PO SCH (08:37)
[2022-11-06] MEDS: GLIMEPIRIDE 2 MG TAB PO SCH (08:38)
[2022-11-06] MEDS: lisinopriL 20 MG TAB PO SCH (08:38)
[2022-11-06] MEDS: HEPARIN SODIUM,PORCINE/PF 5,000 UNIT/0.5 ML SYRINGE SQ SCH ×2 (08:38→20:30)
[2022-11-06 09:23] LABS: African American GFR (CKD) 64.1 (60.0-200.0); Albumin 3.8 g/dL (3.8-4.9); Albumin/Globulin Ratio 1.65 (1.60-3.17); Anion Gap 10.5 mmol/L (10.00-18.00); BUN/Creat Ratio 15.54 Ratio (12.00-20.00); Blood Urea Nitrogen 20.2 mg/dL (9.0-27.0); C Reactive Protein 1.1 mg/dL (0.00-0.80); Calcium 8.8 mg/dL (8.7-10.3); Carbon Dioxide 24.5 mmol/L (20.0-27.5); Globulin 2.3 g/dL (1.6-3.3); Non-African American GFR(CKD) 55.3 (60.0-200.0); Potassium 4.5 mmol/L (3.5-5.5); Total Bilirubin 0.3 mg/dL (0.30-1.20); Total Protein 6.1 g/dL (6.2-8.2)
--- NOTE | 2022-11-06 12:26 | P.PN ---
Subjective Progress Note Date: 11/06/22 Principal diagnosis: Left meniscus injury Patient seen and examined this morning. Patient is resting comfortable in bed. Patient does have complaint of pain in his left lower extremity. Encouraged patient to trial ice and elevation. Patient states that he has been ambulatory with an room in tolerating activity well. Encouragement provided to continue to work with physical therapy. Increase of erythema noted of the left chapa. Patient continues on IV antibiotics. No surgical intervention is warranted at this time, patient verbalizes understanding. Patient has been afebrile, denies nausea/vomiting, or shortness of breath. Objective - Vital Signs Vital signs: Vital Signs Temp 98.1 F 11/06/22 07:00 Pulse 82 11/06/22 07:00 Resp 18 11/06/22 07:00 BP 125/72 11/06/22 07:00 Pulse Ox 95 11/06/22 07:00 FiO2 Intake & Output 11/05/22 11/06/22 11/06/22 18:59 06:59 18:59 Intake Total 236 0 Balance 236 0 Intake: Oral 236 0 Other: Voiding Method Toilet Toilet # Voids 2 1 - Exam Patient is awake, alert and oriented. No acute distress. Well developed, hydrated and nourished. Appears stated age. They do not appear septic. On exam, the patient has an abrasion that has scabbed over on the left knee. He has bruising noted that extends down the lower portion of the leg with edema. There is an increase of erythema noted over the left chapa, patient has severe tenderness to palpation over this region. Skin is warm, dry. Appropriate color for ethnicity. Nailbeds pink with no cyanosis or clubbing. Upper and right lower extremities are atraumatic in appearance without tender ness or deformity. No swelling or erythema. Limited ROM to the left knee due to pain and stiffness. FROM to the upper and right lower extremities. Muscle strength is 5/5 bilaterally. Line O Scribe Operator strength is normal bilaterally. Dorsi/plantar flexion is normal bilaterally. Tendon function is normal. Capillary refill is less than 3 seconds in all extremities. Palpable dorsalis pedis and posterior tibial pulses. Sensation is intact bilaterally, They are intact to light touch sensation in L2 to S1 nerve distribution. Reflexes 2+ bilaterally. Cranial nerves are intact. Compartments are soft and compressible. - Labs CBC & Chem 7: 11/04/22 16:00 11/06/22 05:50 Labs: Abnormal Lab Results - Last 24 Hours (Table) 11/04/22 11/05/22 11/05/22 Range/Units 20:11 05:41 12:01 POC Glucose (mg/dL) 159 H 204 H (70-110) mg/dL Hemoglobin A1c 7.5 H (0.0-6.0) % 11/05/22 11/05/22 Range/Units 17:18 19:55 POC Glucose (mg/dL) 143 H 238 H (70-110) mg/dL Hemoglobin A1c (0.0-6.0) % Assessment and Plan Assessment: Fall from standing Left knee injury Cellulitis of the left chapa Plan: At this time we do not recommend any emergent/urgent orthopedic surgical inter vention. Patient may follow-up with our office for further evaluation. 2. Appreciate medical management, recommend IV antibiotics. 3. Pain management - Continue with oral and IV pain medications prn, ice and elevate. 4. GI prophylaxis - protonix 5. DVT prophylaxis - heparin 6. PT/OT - weightbearing as tolerated with a walker as needed. Patient does not require an immobilzer at this time. 7. Appreciate consult Patient is cleared from a orthopedic standpoint for discharge. Our services will be signing off at this time. Please feel free to reach out with any further questions or concerns.
[2022-11-06 12:29] LABS: Glucose,Whole Blood 121 mg/dL (70-110)
--- NOTE | 2022-11-06 12:44 | P.PN ---
Subjective Progress Note Date: 11/06/22 Patient is 72-year-old gentleman with past medical history significant for HTN, asthma,DMwho presented to the ER because of left knee pain. Patient stated that last week while ambulating in his house he was going down the stairs when he lost his footing and fell on his left knee. Following that patient started noticing worsening pain and swelling of his left knee. Patient was unable to bear weight as well. Because of worsening knee pain patient came to the ER, initial lab work done showed initial lab work done in the ER showed white count 5.3, hemoglobin 13.2, max telet count 202, sodium 140, potassium 4.7, BUN 21, creatinine 1.2 x-ray tibia-fibula showed no acute osseous abnormality of left tibia and fibula Duplex ultrasound negative for DVT of left lower extremity CT of left knee showed torn and extruded medial meniscus patient admitted for further evaluation and treatment 11/06. Patient seen and examined. Still having left knee pain, states he feels worse compared to yesterday. There is redness over his calf. REVIEW OF SYSTEMS: CONSTITUTIONAL: No fever, no malaise,. CARDIOVASCULAR: No chest pain, no palpitations, no syncope. PULMONARY: No shortness of breath, no cough, GASTROINTESTINAL: No diarrhea, no nausea, no vomiting, no abdominal pain. NEUROLOGICAL: No headaches, no weakness, PHYSICAL EXAMINATION: GENERAL: The patient is alert and oriented x3, not in any acute distress. Well developed, well nourished. HEENT: Pupils are round and equally reacting to light. EOMI. No scleral icterus. No conjunctival pallor. Normocephalic, atraumatic. No pharyngeal erythema. No thyromegaly. CARDIOVASCULAR: S1 and S2 present. No murmurs, rubs, or gallops. PULMONARY: Chest is clear to auscultation, no wheezing or crackles. ABDOMEN: Soft, nontender, nondistended, normoactive bowel sounds. No palpable organomegaly. MUSCULOSKELETAL:left knee tender,abrasion over left knee with bruising, erythema in the chapa area NEUROLOGICAL: Gross neurological examination did not reveal any focal deficits. SKIN: No rashes. Assessment and plan Fall from standing Left knee injury Cellulitis of the left leg hypertension Diabetes mellitus Monitor vital signs Monitor CBC Monitor CMP Continue wound care Follow-up on blood cultures Continue pain management Continue pharmacy dose vancomycin follow-up in ID recs Follow-up in orthopedic recommendations Objective - Vital Signs Vital signs: Vital Signs Temp 98.1 F 11/06/22 07:00 Pulse 82 11/06/22 08:00 Resp 18 11/06/22 08:00 BP 125/72 11/06/22 07:00 Pulse Ox 95 11/06/22 07:00 FiO2 Intake & Output 11/05/22 11/06/22 11/06/22 18:59 06:59 18:59 Intake Total 236 0 118 Balance 236 0 118 Intake: Oral 236 0 118 Other: Voiding Method Toilet Toilet Toilet # Voids 2 1 - Labs CBC & Chem 7: 11/04/22 16:00 11/06/22 05:50 Labs: Abnormal Lab Results - Last 24 Hours (Table) 11/04/22 11/05/22 11/05/22 Range/Units 20:11 05:41 12:01 Est GFR (CKD-EPI)NonAf (60.0-200.0) POC Glucose (mg/dL) 159 H 204 H (70-110) mg/dL Hemoglobin A1c 7.5 H (0.0-6.0) % C-Reactive Protein (0.00-0.80) mg/dL Total Protein (6.2-8.2) g/dL 11/05/22 11/05/22 11/06/22 Range/Units 17:18 19:55 05:50 Est GFR (CKD-EPI)NonAf 55.3 L (60.0-200.0) POC Glucose (mg/dL) 143 H 238 H (70-110) mg/dL Hemoglobin A1c (0.0-6.0) % C-Reactive Protein 1.10 H (0.00-0.80) mg/dL Total Protein 6.1 L (6.2-8.2) g/dL
--- NOTE | 2022-11-06 14:30 | P.PN ---
Subjective Progress Note Date: 11/06/22 Principal diagnosis: Left leg cellulitis Patient is a 72-year-old male presented to hospital with left knee and lower leg pain swelling redness after follow-up patient did have a CT has been suggestive of torn and extruded medial meniscus, along with soft tissue swelling and small knee effusion, orthopedic recommended no surgical intervention On today's evaluation that is 11/06/2022, the patient denies having any fever or chills, the patient still complaining of significant pain to the left knee and leg area some improvement of the pain medication no chest pain shortness of breath or cough no abdominal pain or diarrhea Objective - Vital Signs Vital signs: Vital Signs Temp 98.1 F 11/06/22 07:00 Pulse 82 11/06/22 08:00 Resp 18 11/06/22 08:00 BP 125/72 11/06/22 07:00 Pulse Ox 95 11/06/22 07:00 FiO2 Intake & Output 11/05/22 11/06/22 11/06/22 18:59 06:59 18:59 Intake Total 236 0 118 Balance 236 0 118 Intake: Oral 236 0 118 Other: Voiding Method Toilet Toilet Toilet # Voids 2 1 - Exam GENERAL DESCRIPTION: An elderly male lying in bed in no distress RESPIRATORY SYSTEM: Unlabored breathing , decreased breath sounds at bases HEART: S1 S2 regular rate and rhythm , ABDOMEN: Soft , no tenderness EXTREMITIES: Left knee with abrasion some swelling and redness left lower leg redness mildly decreased paper cone machine tender to touch - Labs CBC & Chem 7: 11/04/22 16:00 11/06/22 05:50 Labs: Abnormal Lab Results - Last 24 Hours (Table) 11/04/22 11/05/22 11/05/22 Range/Units 20:11 12:01 17:18 Est GFR (CKD-EPI)NonAf (60.0-200.0) POC Glucose (mg/dL) 159 H 204 H 143 H (70-110) mg/dL C-Reactive Protein (0.00-0.80) mg/dL Total Protein (6.2-8.2) g/dL 11/05/22 11/06/22 Range/Units 19:55 05:50 Est GFR (CKD-EPI)NonAf 55.3 L (60.0-200.0) POC Glucose (mg/dL) 238 H (70-110) mg/dL C-Reactive Protein 1.10 H (0.00-0.80) mg/dL Total Protein 6.1 L (6.2-8.2) g/dL Assessment and Plan (1) Left leg cellulitis Current Visit: Yes Status: Acute Code(s): L03.116 - CELLULITIS OF LEFT LOWER LIMB SNOMED Code(s): 877511519 Plan: 1patient presented to hospital with left knee and leg pain in this patient who did have a history of fall about 5 days ago and did have evidence of meniscal tear as seen on the CT with evidence of effusion and soft tissue swelling possibly related to trauma and hematoma underlying cellulitis left leg but not excluded especially to the left lower leg recently more erythematous and warm to touch 2- blood cultures pending, CRP mildly elevated 3Patient to continue pharmacy to dose with a target trough of 15 while watching kidney function and Vanco trough closely. Time with Patient: Less than 30
[2022-11-06 17:20] LABS: Glucose,Whole Blood 137 mg/dL (70-110)
[2022-11-06 20:38] LABS: Glucose,Whole Blood 130 mg/dL (70-110)
[2022-11-06 21:39] LABS: Basophils # (A) 0.03 X 10*3/uL (0.00-0.10); Basophils % (A) 0.6 %; Eosinophils # (A) 0.13 X 10*3/uL (0.04-0.35); Eosinophils % (A) 2.5 %; HCT 38.9 % (39.6-50.0); HGB 12.2 g/dL (13.0-17.0); Immature Grans, Automated 0.4 %; Lymphocytes % (A) 19.4 %; MCHC 31.4 g/dL (32.0-37.0); Mean Platelet Volume 10.4 fL (9.5-12.2); Monocytes # (A) 0.51 X 10*3/uL (0.20-1.00); Monocytes % (A) 9.9 %; NRBC Per 100 WBC 0 /100 WBCS (0.0-0.0); Neutrophils # (A) 3.47 X 10*3/uL (1.80-7.70); Neutrophils % (A) 67.2 %; Platelet Count 211 X 10*3/uL (140-440); RBC 3.93 X 10*6/uL (4.40-5.60); RDW 14.5 % (11.5-14.5); WBC 5.16 X 10*3/uL (4.50-10.00)
[2022-11-07] MEDS: HYDROmorphone 1 MG/ML 1 ML SYRINGE IVP PRN ×5 (00:12→20:51)
[2022-11-07] MEDS: PANTOPRAZOLE 40 MG TABLET PO SCH (06:14)
[2022-11-07] MEDS: INSULIN ASPART (NovoLOG) 100 UNIT/ML VIAL SQ SCH ×4 (06:16→21:29)
[2022-11-07 06:17] LABS: Glucose,Whole Blood 117 mg/dL (70-110)
[2022-11-07] MEDS: HEPARIN SODIUM,PORCINE/PF 5,000 UNIT/0.5 ML SYRINGE SQ SCH ×2 (08:10→20:49)
[2022-11-07] MEDS: amLODIPine 2.5 MG TAB PO SCH (08:10)
[2022-11-07] MEDS: GLIMEPIRIDE 2 MG TAB PO SCH (08:10)
[2022-11-07] MEDS: lisinopriL 20 MG TAB PO SCH (08:10)
[2022-11-07] MEDS: PIOGLITAZONE 45 MG TAB PO SCH (08:11)
[2022-11-07] MEDS: metFORMIN 500 MG TAB PO SCH ×2 (08:11→20:49)
[2022-11-07] MEDS: VANCOMYCIN 2,000 MG in SODIUM CHLORIDE 0.9% 500 ML 500 ML IVPB SCH (10:51)
[2022-11-07 12:58] LABS: Glucose,Whole Blood 160 mg/dL (70-110)
[2022-11-07 13:12] LABS: HCT 35.6 % (39.6-50.0); HGB 11.5 g/dL (13.0-17.0); MCHC 32.3 g/dL (32.0-37.0); Mean Platelet Volume 10.4 fL (9.5-12.2); NRBC Per 100 WBC 0 /100 WBCS (0.0-0.0); Platelet Count 194 X 10*3/uL (140-440); RBC 3.71 X 10*6/uL (4.40-5.60); RDW 14.4 % (11.5-14.5); WBC 4.71 X 10*3/uL (4.50-10.00)
--- NOTE | 2022-11-07 14:59 | P.PN ---
Subjective Progress Note Date: 11/07/22 Principal diagnosis: Left leg cellulitis Patient is a 72-year-old male presented to hospital with left knee and lower leg pain swelling redness after follow-up patient did have a CT has been suggestive of torn and extruded medial meniscus, along with soft tissue swelling and small knee effusion, orthopedic recommended no surgical intervention On today's evaluation that is 11/07/2022, the patient remains to be afebrile, the patient has been complaining of significant pain to the left knee and leg area some improvement with the pain medication , the patient denies chest pain shortness of breath or cough no abdominal pain or diarrhea Objective - Vital Signs Vital signs: Vital Signs Temp 97.6 F 11/07/22 07:00 Pulse 81 11/07/22 07:00 Resp 20 11/07/22 08:00 BP 169/77 11/07/22 07:00 Pulse Ox 98 11/07/22 07:00 FiO2 Intake & Output 11/06/22 11/07/22 11/07/22 18:59 06:59 18:59 Intake Total 354 118 Balance 354 118 Intake: Oral 354 118 Other: Voiding Method Toilet Toilet Toilet # Voids 2 3 - Exam GENERAL DESCRIPTION: An elderly male lying in bed in no distress RESPIRATORY SYSTEM: Unlabored breathing , decreased breath sounds at bases HEART: S1 S2 regular rate and rhythm , ABDOMEN: Soft , no tenderness EXTREMITIES: Left knee with abrasion some swelling and redness left lower leg redness mildly decreased chemicals distiller to touch - Labs CBC & Chem 7: 11/07/22 05:42 11/07/22 05:42 Labs: Abnormal Lab Results - Last 24 Hours (Table) 11/06/22 11/06/22 11/06/22 Range/Units 12:28 14:35 17:18 RBC 3.93 L (4.40-5.60) X 10*6/uL Hgb 12.2 L (13.0-17.0) g/dL Hct 38.9 L (39.6-50.0) % MCV 99.0 H (80.0-97.0) fL MCHC 31.4 L (32.0-37.0) g/dL POC Glucose (mg/dL) 121 H 137 H (70-110) mg/dL 11/06/22 11/07/22 Range/Units 20:37 06:16 RBC (4.40-5.60) X 10*6/uL Hgb (13.0-17.0) g/dL Hct (39.6-50.0) % MCV (80.0-97.0) fL MCHC (32.0-37.0) g/dL POC Glucose (mg/dL) 130 H 117 H (70-110) mg/dL Assessment and Plan (1) Left leg cellulitis Current Visit: Yes Status: Acute Code(s): L03.116 - CELLULITIS OF LEFT LOWER LIMB SNOMED Code(s): 574260973 Plan: 1patient presented to hospital with left knee and leg pain in this patient who did have a history of fall about 5 days ago and did have evidence of meniscal tear as seen on the CT with evidence of effusion and soft tissue swelling possibly related to trauma and hematoma underlying cellulitis left leg but not excluded especially to the left lower leg recently more erythematous and warm to touch 2- blood cultures so far negative, CRP mildly elevated 3Patient left lower extremity redness has slightly decreased, patient will continue pharmacy to dose , may benefit from reevaluation by orthopedics as the patient did have questions regarding his injury and surgical repair Time with Patient: Less than 30
[2022-11-07 17:29] LABS: Glucose,Whole Blood 79 mg/dL (70-110)
[2022-11-07 21:09] LABS: Glucose,Whole Blood 113 mg/dL (70-110)
[2022-11-08] MEDS: VANCOMYCIN 2,000 MG in SODIUM CHLORIDE 0.9% 500 ML 500 ML IVPB SCH ×2 (02:22→18:13)
[2022-11-08] MEDS: HYDROmorphone 1 MG/ML 1 ML SYRINGE IVP PRN ×4 (02:22→20:26)
[2022-11-08] MEDS: PANTOPRAZOLE 40 MG TABLET PO SCH (05:58)
[2022-11-08 07:28] LABS: Glucose,Whole Blood 123 mg/dL (70-110)
[2022-11-08 08:26] LABS: African American GFR (CKD) 65 (>60 ml/min/1.73 sqM); Anion Gap 7 mmol/L; Blood Urea Nitrogen 21 mg/dL (9-20); Calcium 8.5 mg/dL (8.4-10.2); Carbon Dioxide 26 mmol/L (22-30); Chloride 103 mmol/L (98-107); Glucose 141 mg/dL (74-99); Non-African American GFR(CKD) 56 (>60 ml/min/1.73 sqM); Potassium 4.8 mmol/L (3.5-5.1); Sodium 136 mmol/L (137-145)
[2022-11-08] MEDS: INSULIN ASPART (NovoLOG) 100 UNIT/ML VIAL SQ SCH ×4 (08:43→21:19)
[2022-11-08] MEDS: PIOGLITAZONE 45 MG TAB PO SCH (08:52)
[2022-11-08] MEDS: amLODIPine 2.5 MG TAB PO SCH (08:52)
[2022-11-08] MEDS: metFORMIN 500 MG TAB PO SCH ×2 (08:52→20:26)
[2022-11-08] MEDS: GLIMEPIRIDE 2 MG TAB PO SCH (08:52)
[2022-11-08] MEDS: HEPARIN SODIUM,PORCINE/PF 5,000 UNIT/0.5 ML SYRINGE SQ SCH ×2 (08:53→20:26)
[2022-11-08] MEDS: lisinopriL 20 MG TAB PO SCH (08:53)
--- NOTE | 2022-11-08 10:05 | P.PN ---
Subjective Progress Note Date: 11/07/22 Patient is 72-year-old gentleman with past medical history significant for HTN, asthma,DMwho presented to the ER because of left knee pain. Patient stated that last week while ambulating in his house he was going down the stairs when he lost his footing and fell on his left knee. Following that patient started noticing worsening pain and swelling of his left knee. Patient was unable to bear weight as well. Because of worsening knee pain patient came to the ER, initial lab work done showed initial lab work done in the ER showed white count 5.3, hemoglobin 13.2, max telet count 202, sodium 140, potassium 4.7, BUN 21, creatinine 1.2 x-ray tibia-fibula showed no acute osseous abnormality of left tibia and fibula Duplex ultrasound negative for DVT of left lower extremity CT of left knee showed torn and extruded medial meniscus patient admitted for further evaluation and treatment 11/06. Patient seen and examined. Still having left knee pain, states he feels worse compared to yesterday. There is redness over his calf. 11/07/2022 Patient is currently lying in the bed. Awake alert and oriented x3. Still having left leg swelling and redness and pain. Mainly redness over the chapa region. Patient has been afebrile. Also complaining of left knee pain. Patient was seen by orthopedic surgery and recommends no surgical intervention at this time. Recommended follow-up in the clinic. Patient is being current on antibiotics, vancomycin. No complaints of chest pain or shortness of breath. No nausea vomiting or abdominal pain or diarrhea. Laboratory data showed WBC 4.7 hemoglobin 11.5 and platelets 194. Current medications reviewed. REVIEW OF SYSTEMS: CONSTITUTIONAL: No fever, no malaise,. CARDIOVASCULAR: No chest pain, no palpitations, no syncope. PULMONARY: No shortness of breath, no cough, GASTROINTESTINAL: No diarrhea, no nausea, no vomiting, no abdominal pain. NEUROLOGICAL: No headaches, no weakness, PHYSICAL EXAMINATION: GENERAL: The patient is alert and oriented x3, not in any acute distress. Well developed, well nourished. HEENT: Pupils are round and equally reacting to light. EOMI. No scleral icterus. No conjunctival pallor. Normocephalic, atraumatic. No pharyngeal erythema. No thyromegaly. CARDIOVASCULAR: S1 and S2 present. No murmurs, rubs, or gallops. PULMONARY: Chest is clear to auscultation, no wheezing or crackles. ABDOMEN: Soft, nontender, nondistended, normoactive bowel sounds. No palpable organomegaly. MUSCULOSKELETAL:left knee tender,abrasion over left knee with bruising, erythema in the chapa area NEUROLOGICAL: Gross neurological examination did not reveal any focal deficits. SKIN: No rashes. Assessment and plan Fall from standing Left knee injury and possible meniscal tear. Cellulitis of the left leg hypertension Diabetes mellitus Monitor vital signs Monitor CBC Monitor CMP Continue wound care Follow-up on blood cultures Continue pain management Continue pharmacy dose vancomycin follow-up in ID recs Follow-up in orthopedic recommendations. No surgical intervention as per orthopedic surgery. Objective - Vital Signs Vital signs: Vital Signs Temp 98.2 F 11/07/22 19:00 Pulse 72 11/07/22 19:00 Resp 17 11/07/22 19:00 BP 157/79 11/07/22 19:00 Pulse Ox 98 11/07/22 19:00 FiO2 Intake & Output 11/07/22 11/07/22 11/08/22 06:59 18:59 06:59 Intake Total 416 Balance 416 Intake: Oral 416 Other: Voiding Method Toilet Toilet # Voids 3 3 - Labs CBC & Chem 7: 11/07/22 05:42 11/08/22 06:25 Labs: Abnormal Lab Results - Last 24 Hours (Table) 11/06/22 11/07/22 11/07/22 Range/Units 14:35 05:42 06:16 RBC 3.93 L 3.71 L (4.40-5.60) X 10*6/uL Hgb 12.2 L 11.5 L (13.0-17.0) g/dL Hct 38.9 L 35.6 L (39.6-50.0) % MCV 99.0 H (80.0-97.0) fL MCHC 31.4 L (32.0-37.0) g/dL POC Glucose (mg/dL) 117 H (70-110) mg/dL 11/07/22 Range/Units 12:56 RBC (4.40-5.60) X 10*6/uL Hgb (13.0-17.0) g/dL Hct (39.6-50.0) % MCV (80.0-97.0) fL MCHC (32.0-37.0) g/dL POC Glucose (mg/dL) 160 H (70-110) mg/dL
[2022-11-08 11:04] LABS: Basophils # (A) 0.03 X 10*3/uL (0.00-0.10); Basophils % (A) 0.7 %; Eosinophils # (A) 0.26 X 10*3/uL (0.04-0.35); Eosinophils % (A) 5.7 %; HCT 35.4 % (39.6-50.0); HGB 10.8 g/dL (13.0-17.0); Immature Grans, Automated 0.4 %; Lymphocytes # (A) 1.04 X 10*3/uL (0.90-5.00); MCH 29.9 pg (27.0-32.0); MCHC 30.5 g/dL (32.0-37.0); MCV 98.1 fL (80.0-97.0); Mean Platelet Volume 10.5 fL (9.5-12.2); Monocytes # (A) 0.47 X 10*3/uL (0.20-1.00); Monocytes % (A) 10.4 %; NRBC Per 100 WBC 0 /100 WBCS (0.0-0.0); Neutrophils # (A) 2.71 X 10*3/uL (1.80-7.70); Neutrophils % (A) 59.8 %; Platelet Count 187 X 10*3/uL (140-440); RBC 3.61 X 10*6/uL (4.40-5.60); RDW 14.3 % (11.5-14.5); WBC 4.53 X 10*3/uL (4.50-10.00)
[2022-11-08 12:32] LABS: Glucose,Whole Blood 154 mg/dL (70-110)
--- NOTE | 2022-11-08 12:32 | CDI ---
Documentation Clarification Form Date: 11/08/2022 From: Aminah Starks Phone: [phone] Admit Date: 11/04/2022 5:13:00 PM Patient Name: Justyn Estrella Visit Number: [id number] Discharge Date: ATTENTION: The Clinical Documentation Specialists (CDI) and [facility] Coding Staff appreciate your assistance in clarifying documentation. Please respond to the clarification below the line at the bottom and electronically sign. The CDI & [facility] Coding staff will review the response and follow-up if needed. Please note: Queries are made part of the Legal Health Record. If you have any questions, please contact the author of this message via ITS. Dr. Patrick Ahmadi Cellulitis is documented in the progress note on . Additional clarification regarding the type of cellulitis is requested. History/risk factors: "72-year-old gentleman with past medical history significant for HTN, asthma, DM who presented to the ER because of left knee pain." "Diabetes Mellitus" - Per H&P on 11/05 Clinical Indicators: "(Tenderness to palpation of left leg at the knee, left chapa even with light touch, DP pulses 2+, edema to the left lower extremity, abrasion to the left knee)" - Per ED Note on 11/04 Blood Glucose: 11/04 - 191, 159 11/05 - 238, 143, 204, 129 11/06 - 130, 137, 121, 96 11/07 - 113, 79, 160, 117 Home medication: Glimepiride 2mg PO Daily Treatment: Per Admission H&P on 11/05 "Start patient on pharmacy dose vancomycin consult ID. Continue pain management monitor blood sugar levels, continue sliding scale insulin" Please clarify the etiology of the cellulitis, if known: [ ] Cellulitis is a diabetic skin complication [ x ] Cellulitis is not a diabetic skin complication [ ] Other, please specify: [ ] Unable to determine Aminah Starks RN, CDS Clinical Veterinary Laboratory Technician [facility] [email or web address] O: [phone] MTDD
--- NOTE | 2022-11-08 15:13 | P.PN ---
Subjective Progress Note Date: 11/08/22 Principal diagnosis: Left leg cellulitis Patient is a 72-year-old male presented to hospital with left knee and lower leg pain swelling redness after follow-up patient did have a CT has been suggestive of torn and extruded medial meniscus, along with soft tissue swelling and small knee effusion, orthopedic recommended no surgical intervention On today's evaluation that is 11/08/2022, the patient continues to be afebrile, the patient continues to be complaining of significant pain to the left knee and leg area especially with ambulation , the patient denies chest pain shortness of breath or cough no abdominal pain or diarrhea Objective - Vital Signs Vital signs: Vital Signs Temp 98.0 F 11/08/22 07:00 Pulse 66 11/08/22 07:00 Resp 16 11/08/22 07:00 BP 158/83 11/08/22 07:00 Pulse Ox 96 11/08/22 07:00 FiO2 Intake & Output 11/07/22 11/08/22 11/08/22 18:59 06:59 18:59 Intake Total 416 360 Balance 416 360 Intake: Oral 416 360 Other: Voiding Method Toilet # Voids 3 4 - Exam GENERAL DESCRIPTION: An elderly male up in the room in no distress EXTREMITIES: Left knee with abrasion some swelling and redness left lower leg redness about the same - Labs CBC & Chem 7: 11/08/22 06:31 11/08/22 06:25 Labs: Abnormal Lab Results - Last 24 Hours (Table) 11/07/22 11/07/22 11/07/22 Range/Units 05:42 12:56 21:08 RBC 3.71 L (4.40-5.60) X 10*6/uL Hgb 11.5 L (13.0-17.0) g/dL Hct 35.6 L (39.6-50.0) % Sodium (137-145) mmol/L BUN (9-20) mg/dL Creatinine (0.66-1.25) mg/dL Glucose (74-99) mg/dL POC Glucose (mg/dL) 160 H 113 H (70-110) mg/dL 11/08/22 11/08/22 Range/Units 06:25 07:26 RBC (4.40-5.60) X 10*6/uL Hgb (13.0-17.0) g/dL Hct (39.6-50.0) % Sodium 136 L (137-145) mmol/L BUN 21 H (9-20) mg/dL Creatinine 1.29 H (0.66-1.25) mg/dL Glucose 141 H (74-99) mg/dL POC Glucose (mg/dL) 123 H (70-110) mg/dL Microbiology - Last 24 Hours (Table) 11/06/22 06:00 Blood Culture - Preliminary Blood Assessment and Plan (1) Left leg cellulitis Current Visit: Yes Status: Acute Code(s): L03.116 - CELLULITIS OF LEFT LOWER LIMB SNOMED Code(s): 932661826 Plan: 1patient presented to hospital with left knee and leg pain in this patient who did have a history of fall about 5 days ago and did have evidence of meniscal tear as seen on the CT with evidence of effusion and soft tissue swelling possibly related to trauma and hematoma underlying cellulitis left leg but not excluded especially to the left lower leg recently more erythematous and warm to touch 2- blood cultures so far negative, CRP mildly elevated 3Patient left lower extremity redness about the same however the patient did have worsening pain and will benefit from possible reimaging and orthopedic evaluation and this has been discussed with the ASSOCIATE PROFESSOR OF LITERATURE for orthopedics continue vancomycin at this point Time with Patient: Less than 30
--- NOTE | 2022-11-08 15:38 | P.PN ---
Subjective Progress Note Date: 11/08/22 72-year-old gentleman with past medical history significant for HTN, asthma,DMwho presented to the ER because of left knee pain. Patient stated that last week while ambulating in his house he was going down the stairs when he lost his footing and fell on his left knee. Following that patient started not icing worsening pain and swelling of his left knee. Patient was unable to bear weight as well. Because of worsening knee pain patient came to the ER, initial lab work done showed initial lab work done in the ER showed white count 5.3, hemoglobin 13.2, platelet count 202, sodium 140, potassium 4.7, BUN 21, creatinine 1.2 x-ray tibia-fibula showed no acute osseous abnormality of left tibia and fibula Duplex ultrasound negative for DVT of left lower extremity CT of left knee showed torn and extruded medial meniscus patient admitted for further evaluation and treatment Objective - Vital Signs Vital signs: Vital Signs Temp 98.0 F 11/08/22 07:00 Pulse 66 11/08/22 07:00 Resp 16 11/08/22 07:00 BP 158/83 11/08/22 07:00 Pulse Ox 96 11/08/22 07:00 FiO2 Intake & Output 11/07/22 11/08/22 11/08/22 18:59 06:59 18:59 Intake Total 416 360 Balance 416 360 Intake: Oral 416 360 Other: Voiding Method Toilet # Voids 3 4 - Exam GENERAL: The patient is alert and oriented x3, not in any acute distress. Well developed, well nourished. HEENT: Pupils are round and equally reacting to light. EOMI. No scleral icterus. No conjunctival pallor. Normocephalic, atraumatic. No pharyngeal erythema. No thyromegaly. CARDIOVASCULAR: S1 and S2 present. No murmurs, rubs, or gallops. PULMONARY: Chest is clear to auscultation, no wheezing or crackles. ABDOMEN: Soft, nontender, nondistended, normoactive bowel sounds. No palpable organomegaly. MUSCULOSKELETAL:left knee tender,abrasion over left knee with bruising, erythema in the chapa area NEUROLOGICAL: Gross neurological examination did not reveal any focal deficits. SKIN: No rashes. - Labs CBC & Chem 7: 11/08/22 06:31 11/08/22 06:25 Labs: Abnormal Lab Results - Last 24 Hours (Table) 11/07/22 11/08/22 11/08/22 Range/Units 21:08 06:25 06:31 RBC 3.61 L (4.40-5.60) X 10*6/uL Hgb 10.8 L (13.0-17.0) g/dL Hct 35.4 L (39.6-50.0) % MCV 98.1 H (80.0-97.0) fL MCHC 30.5 L (32.0-37.0) g/dL Sodium 136 L (137-145) mmol/L BUN 21 H (9-20) mg/dL Creatinine 1.29 H (0.66-1.25) mg/dL Glucose 141 H (74-99) mg/dL POC Glucose (mg/dL) 113 H (70-110) mg/dL 11/08/22 11/08/22 Range/Units 07:26 12:31 RBC (4.40-5.60) X 10*6/uL Hgb (13.0-17.0) g/dL Hct (39.6-50.0) % MCV (80.0-97.0) fL MCHC (32.0-37.0) g/dL Sodium (137-145) mmol/L BUN (9-20) mg/dL Creatinine (0.66-1.25) mg/dL Glucose (74-99) mg/dL POC Glucose (mg/dL) 123 H 154 H (70-110) mg/dL Microbiology - Last 24 Hours (Table) 11/06/22 06:00 Blood Culture - Preliminary Blood Assessment and Plan Assessment: Fall from standing Left knee injury and possible meniscal tear. Cellulitis of the left leg hypertension Diabetes mellitus Monitor vital signs Monitor CBC Monitor CMP Continue wound care Follow-up on blood cultures Continue pain management Continue pharmacy dose vancomycin follow-up in ID recs Follow-up in orthopedic recommendations. No surgical intervention as per orthopedic surgery.
[2022-11-08] MEDS ORDERED: VANCOMYCIN TROUGH DUE 1 EACH MISC MISCELLANE ONE (17:00)
[2022-11-08 17:36] LABS: Glucose,Whole Blood 112 mg/dL (70-110)
[2022-11-08 20:26] LABS: Glucose,Whole Blood 174 mg/dL (70-110)
[2022-11-09] MEDS: HYDROmorphone 1 MG/ML 1 ML SYRINGE IVP PRN ×5 (00:21→22:24)
[2022-11-09] MEDS: PANTOPRAZOLE 40 MG TABLET PO SCH (05:09)
[2022-11-09 05:47] LABS: Glucose,Whole Blood 124 mg/dL (70-110)
[2022-11-09] MEDS: INSULIN ASPART (NovoLOG) 100 UNIT/ML VIAL SQ SCH ×4 (05:59→21:09)
[2022-11-09 08:02] LABS: African American GFR (CKD) 68 (>60 ml/min/1.73 sqM); Anion Gap 9 mmol/L; Blood Urea Nitrogen 21 mg/dL (9-20); Calcium 9.2 mg/dL (8.4-10.2); Carbon Dioxide 28 mmol/L (22-30); Chloride 102 mmol/L (98-107); Glucose 118 mg/dL (74-99); Non-African American GFR(CKD) 58 (>60 ml/min/1.73 sqM); Sodium 139 mmol/L (137-145)
[2022-11-09] MEDS: metFORMIN 500 MG TAB PO SCH ×2 (08:40→21:09)
[2022-11-09] MEDS: lisinopriL 20 MG TAB PO SCH (08:40)
[2022-11-09] MEDS: PIOGLITAZONE 45 MG TAB PO SCH (08:41)
[2022-11-09] MEDS: HEPARIN SODIUM,PORCINE/PF 5,000 UNIT/0.5 ML SYRINGE SQ SCH ×2 (08:41→21:09)
[2022-11-09] MEDS: amLODIPine 2.5 MG TAB PO SCH (08:41)
[2022-11-09] MEDS: GLIMEPIRIDE 2 MG TAB PO SCH (08:41)
[2022-11-09 09:39] LABS: Basophils # (A) 0.03 X 10*3/uL (0.00-0.10); Basophils % (A) 0.6 %; Eosinophils # (A) 0.24 X 10*3/uL (0.04-0.35); Eosinophils % (A) 4.8 %; HGB 12.7 g/dL (13.0-17.0); Immature Grans, Automated 0.6 %; Lymphocytes # (A) 1.21 X 10*3/uL (0.90-5.00); Lymphocytes % (A) 24.3 %; MCH 30.7 pg (27.0-32.0); Mean Platelet Volume 10.3 fL (9.5-12.2); Monocytes # (A) 0.42 X 10*3/uL (0.20-1.00); Monocytes % (A) 8.5 %; NRBC Per 100 WBC 0 /100 WBCS (0.0-0.0); Neutrophils # (A) 3.04 X 10*3/uL (1.80-7.70); Neutrophils % (A) 61.2 %; Platelet Count 226 X 10*3/uL (140-440); RBC 4.14 X 10*6/uL (4.40-5.60); RDW 14.3 % (11.5-14.5); WBC 4.97 X 10*3/uL (4.50-10.00)
[2022-11-09 12:04] LABS: Glucose,Whole Blood 280 mg/dL (70-110)
[2022-11-09 17:18] LABS: Glucose,Whole Blood 105 mg/dL (70-110)
[2022-11-09] MEDS: VANCOMYCIN 2,000 MG in SODIUM CHLORIDE 0.9% 500 ML 500 ML IVPB SCH (18:26)
[2022-11-09 20:58] LABS: Glucose,Whole Blood 195 mg/dL (70-110)
[2022-11-10] MEDS: HYDROmorphone 1 MG/ML 1 ML SYRINGE IVP PRN ×5 (03:12→21:47)
[2022-11-10 05:51] LABS: Glucose,Whole Blood 108 mg/dL (70-110)
[2022-11-10] MEDS: INSULIN ASPART (NovoLOG) 100 UNIT/ML VIAL SQ SCH ×4 (05:51→20:43)
[2022-11-10] MEDS: PANTOPRAZOLE 40 MG TABLET PO SCH (06:07)
[2022-11-10 08:03] LABS: African American GFR (CKD) 70 (>60 ml/min/1.73 sqM); Anion Gap 8 mmol/L; Blood Urea Nitrogen 21 mg/dL (9-20); Calcium 8.7 mg/dL (8.4-10.2); Carbon Dioxide 27 mmol/L (22-30); Chloride 102 mmol/L (98-107); Glucose 112 mg/dL (74-99); Non-African American GFR(CKD) 61 (>60 ml/min/1.73 sqM); Potassium 4.8 mmol/L (3.5-5.1); Sodium 137 mmol/L (137-145)
[2022-11-10] MEDS: metFORMIN 500 MG TAB PO SCH ×2 (08:56→20:43)
[2022-11-10] MEDS: HEPARIN SODIUM,PORCINE/PF 5,000 UNIT/0.5 ML SYRINGE SQ SCH ×2 (08:56→20:43)
[2022-11-10] MEDS: PIOGLITAZONE 45 MG TAB PO SCH (08:56)
[2022-11-10] MEDS: amLODIPine 2.5 MG TAB PO SCH (08:56)
[2022-11-10] MEDS: lisinopriL 20 MG TAB PO SCH (08:56)
[2022-11-10] MEDS: GLIMEPIRIDE 2 MG TAB PO SCH (08:57)
[2022-11-10] MEDS: HYDROcodone/APAP 10-325MG 1 EACH TAB PO PRN (09:38)
[2022-11-10 11:00] LABS: Basophils % (A) 0 %; Eosinophils # (A) 0.2 k/uL (0-0.7); Eosinophils % (A) 5 %; HCT 37.5 % (39.0-53.0); Lymphocytes % (A) 22 %; MCH 30.6 pg (25.0-35.0); MCHC 31.9 g/dL (31.0-37.0); Mean Platelet Volume 8.5; Monocytes # (A) 0.3 k/uL (0-1.0); Monocytes % (A) 7 %; Neutrophils # (A) 2.9 k/uL (1.3-7.7); Neutrophils % (A) 62 %; Platelet Count 197 k/uL (150-450); RBC 3.91 m/uL (4.30-5.90); RDW 14.4 % (11.5-15.5); WBC 4.6 k/uL (3.8-10.6)
[2022-11-10 12:03] LABS: Glucose,Whole Blood 154 mg/dL (70-110)
--- NOTE | 2022-11-10 15:56 | P.PN ---
Subjective Progress Note Date: 11/09/22 Principal diagnosis: Left leg cellulitis Patient is a 72-year-old male presented to hospital with left knee and lower leg pain swelling redness after follow-up patient did have a CT has been suggestive of torn and extruded medial meniscus, along with soft tissue swelling and small knee effusion, orthopedic recommended no surgical intervention On today's evaluation that is 11/09/2022, the patient remains to be afebrile, the patient has been complaining of significant pain to the left knee and leg area especially with ambulation , the patient denies chest pain shortness of breath or cough no abdominal pain or diarrhea Objective - Vital Signs Vital signs: Vital Signs Temp 97.9 F 11/09/22 06:45 Pulse 70 11/09/22 06:45 Resp 17 11/09/22 06:45 BP 125/78 11/09/22 06:45 Pulse Ox 97 11/09/22 06:45 FiO2 Intake & Output 11/08/22 11/09/22 11/09/22 18:59 06:59 18:59 Intake Total 478 118 Balance 478 118 Intake: Oral 478 118 Other: Voiding Method Toilet # Voids 1 2 - Exam GENERAL DESCRIPTION: An elderly male lying in bed in no distress RESPIRATORY SYSTEM: Unlabored breathing , decreased breath sounds at bases HEART: S1 S2 regular rate and rhythm , ABDOMEN: Soft , no tenderness EXTREMITIES: Left knee and lower extremity redness has decreased - Labs CBC & Chem 7: 11/10/22 06:44 11/10/22 06:44 Labs: Abnormal Lab Results - Last 24 Hours (Table) 11/08/22 11/08/22 11/08/22 Range/Units 12:31 17:33 20:23 RBC (4.40-5.60) X 10*6/uL Hgb (13.0-17.0) g/dL MCV (80.0-97.0) fL MCHC (32.0-37.0) g/dL BUN (9-20) mg/dL Glucose (74-99) mg/dL POC Glucose (mg/dL) 154 H 112 H 174 H (70-110) mg/dL 11/09/22 11/09/22 11/09/22 Range/Units 05:45 07:04 07:07 RBC 4.14 L (4.40-5.60) X 10*6/uL Hgb 12.7 L (13.0-17.0) g/dL MCV 99.0 H (80.0-97.0) fL MCHC 31.0 L (32.0-37.0) g/dL BUN 21 H (9-20) mg/dL Glucose 118 H (74-99) mg/dL POC Glucose (mg/dL) 124 H (70-110) mg/dL 11/09/22 Range/Units 12:03 RBC (4.40-5.60) X 10*6/uL Hgb (13.0-17.0) g/dL MCV (80.0-97.0) fL MCHC (32.0-37.0) g/dL BUN (9-20) mg/dL Glucose (74-99) mg/dL POC Glucose (mg/dL) 280 H (70-110) mg/dL Microbiology - Last 24 Hours (Table) 11/06/22 06:00 Blood Culture - Preliminary Blood Assessment and Plan (1) Left leg cellulitis Current Visit: Yes Status: Acute Code(s): L03.116 - CELLULITIS OF LEFT LOWER LIMB SNOMED Code(s): 839553380 Plan: 1patient presented to hospital with left knee and leg pain in this patient who did have a history of fall about 5 days ago and did have evidence of meniscal tear as seen on the CT with evidence of effusion and soft tissue swelling possibly related to trauma and hematoma underlying cellulitis left leg but not excluded especially to the left lower leg recently more erythematous and warm to touch 2- blood cultures so far negative, CRP mildly elevated 3Patient left lower extremity redness has decreased in intensity we're waiting for orthopedic reevaluation continue with the vancomycin Time with Patient: Less than 30
--- NOTE | 2022-11-10 15:57 | P.PN ---
Subjective Progress Note Date: 11/10/22 Principal diagnosis: Left leg cellulitis Patient is a 72-year-old male presented to hospital with left knee and lower leg pain swelling redness after follow-up patient did have a CT has been suggestive of torn and extruded medial meniscus, along with soft tissue swelling and small knee effusion, orthopedic recommended no surgical intervention On today's evaluation that is 11/10/2022, the patient denies any fever and chills, the patient continued to be complaining of pain to the left knee and leg area especially with ambulation and touching the affected area , the patient denies chest pain shortness of breath or cough no abdominal pain or diarrhea Objective - Vital Signs Vital signs: Vital Signs Temp 97.8 F 11/10/22 07:42 Pulse 74 11/10/22 07:42 Resp 18 11/10/22 07:42 BP 147/88 11/10/22 07:42 Pulse Ox 95 11/10/22 07:42 FiO2 Intake & Output 11/09/22 11/10/22 11/10/22 18:59 06:59 18:59 Intake Total 354 236 Balance 354 236 Intake: Oral 354 236 Other: Voiding Method Toilet # Voids 3 1 1 # Bowel Movements 1 - Exam GENERAL DESCRIPTION: An elderly male lying in bed in no distress RESPIRATORY SYSTEM: Unlabored breathing , decreased breath sounds at bases HEART: S1 S2 regular rate and rhythm , ABDOMEN: Soft , no tenderness EXTREMITIES: Left knee and lower extremity redness has decreased in intensity is quill machine tender to touch - Labs CBC & Chem 7: 11/10/22 06:44 11/10/22 06:44 Labs: Abnormal Lab Results - Last 24 Hours (Table) 11/09/22 11/10/22 11/10/22 Range/Units 20:56 06:44 06:44 RBC 3.91 L (4.30-5.90) m/uL Hgb 12.0 L (13.0-17.5) gm/dL Hct 37.5 L (39.0-53.0) % BUN 21 H (9-20) mg/dL Glucose 112 H (74-99) mg/dL POC Glucose (mg/dL) 195 H (70-110) mg/dL 11/10/22 Range/Units 12:02 RBC (4.30-5.90) m/uL Hgb (13.0-17.5) gm/dL Hct (39.0-53.0) % BUN (9-20) mg/dL Glucose (74-99) mg/dL POC Glucose (mg/dL) 154 H (70-110) mg/dL Microbiology - Last 24 Hours (Table) 11/06/22 06:00 Blood Culture - Preliminary Blood Assessment and Plan (1) Left leg cellulitis Current Visit: Yes Status: Acute Code(s): L03.116 - CELLULITIS OF LEFT LOWER LIMB SNOMED Code(s): 978803850 Plan: 1patient presented to hospital with left knee and leg pain in this patient who did have a history of fall about 5 days ago and did have evidence of meniscal tear as seen on the CT with evidence of effusion and soft tissue swelling possibly related to trauma and hematoma underlying cellulitis left leg but not excluded especially to the left lower leg recently more erythematous and warm to touch 2- blood cultures so far negative, CRP mildly elevated 3Patient left lower extremity redness has decreased in intensity , at this point we are waiting for orthopedic reevaluation in view of persistent pain, patient to continue with the vancomycin and monitor kidney function closely Time with Patient: Less than 30
[2022-11-10 17:17] LABS: Glucose,Whole Blood 102 mg/dL (70-110)
[2022-11-10] MEDS: VANCOMYCIN 2,000 MG in SODIUM CHLORIDE 0.9% 500 ML 500 ML IVPB SCH (18:14)
--- NOTE | 2022-11-10 18:26 | P.PN ---
Subjective Progress Note Date: 11/09/22 72-year-old gentleman with past medical history significant for HTN, asthma,DMwho presented to the ER because of left knee pain. Patient stated that last week while ambulating in his house he was going down the stairs when he lost his footing and fell on his left knee. Following that patient started not icing worsening pain and swelling of his left knee. Patient was unable to bear weight as well. Because of worsening knee pain patient came to the ER, initial lab work done showed initial lab work done in the ER showed white count 5.3, hemoglobin 13.2, platelet count 202, sodium 140, potassium 4.7, BUN 21, creatinine 1.2 x-ray tibia-fibula showed no acute osseous abnormality of left tibia and fibula Duplex ultrasound negative for DVT of left lower extremity CT of left knee showed torn and extruded medial meniscus patient admitted for further evaluation and treatment 11/09/2022 --the patient remains to be afebrile, the patient has been complaining of significant pain to the left knee and leg area especially with ambulation , the patient denies chest pain shortness of breath or cough no abdominal pain or diarrhea 1patient presented to hospital with left knee and leg pain in this patient who did have a history of fall about 5 days ago and did have evidence of meniscal tear as seen on the CT with evidence of effusion and soft tissue swelling possibly related to trauma and hematoma underlying cellulitis left leg but not excluded especially to the left lower leg recently more erythematous and warm to touch 2- blood cultures so far negative, CRP mildly elevated 3Patient left lower extremity redness has decreased in intensity we're waiting for orthopedic reevaluation continue with the vancomycin Objective - Vital Signs Vital signs: Vital Signs Temp 97.9 F 11/09/22 06:45 Pulse 70 11/09/22 06:45 Resp 17 11/09/22 06:45 BP 125/78 11/09/22 06:45 Pulse Ox 97 11/09/22 06:45 FiO2 Intake & Output 11/08/22 11/09/22 11/09/22 18:59 06:59 18:59 Intake Total 478 Balance 478 Intake: Oral 478 Other: Voiding Method Toilet # Voids 1 2 - Exam GENERAL: The patient is alert and oriented x3, not in any acute distress. Well developed, well nourished. HEENT: Pupils are round and equally reacting to light. EOMI. No scleral icterus. No conjunctival pallor. Normocephalic, atraumatic. No pharyngeal erythema. No thyromegaly. CARDIOVASCULAR: S1 and S2 present. No murmurs, rubs, or gallops. PULMONARY: Chest is clear to auscultation, no wheezing or crackles. ABDOMEN: Soft, nontender, nondistended, normoactive bowel sounds. No palpable organomegaly. MUSCULOSKELETAL:left knee tender,abrasion over left knee with bruising, erythema in the chapa area NEUROLOGICAL: Gross neurological examination did not reveal any focal deficits. SKIN: No rashes. - Labs CBC & Chem 7: 11/10/22 06:44 11/10/22 06:44 Labs: Abnormal Lab Results - Last 24 Hours (Table) 11/08/22 11/08/22 11/08/22 Range/Units 06:31 12:31 17:33 RBC 3.61 L (4.40-5.60) X 10*6/uL Hgb 10.8 L (13.0-17.0) g/dL Hct 35.4 L (39.6-50.0) % MCV 98.1 H (80.0-97.0) fL MCHC 30.5 L (32.0-37.0) g/dL BUN (9-20) mg/dL Glucose (74-99) mg/dL POC Glucose (mg/dL) 154 H 112 H (70-110) mg/dL 11/08/22 11/09/22 11/09/22 Range/Units 20:23 05:45 07:04 RBC (4.40-5.60) X 10*6/uL Hgb (13.0-17.0) g/dL Hct (39.6-50.0) % MCV (80.0-97.0) fL MCHC (32.0-37.0) g/dL BUN 21 H (9-20) mg/dL Glucose 118 H (74-99) mg/dL POC Glucose (mg/dL) 174 H 124 H (70-110) mg/dL 11/09/22 Range/Units 07:07 RBC 4.14 L (4.40-5.60) X 10*6/uL Hgb 12.7 L (13.0-17.0) g/dL Hct (39.6-50.0) % MCV 99.0 H (80.0-97.0) fL MCHC 31.0 L (32.0-37.0) g/dL BUN (9-20) mg/dL Glucose (74-99) mg/dL POC Glucose (mg/dL) (70-110) mg/dL Microbiology - Last 24 Hours (Table) 11/06/22 06:00 Blood Culture - Preliminary Blood Assessment and Plan Assessment: Fall from standing Left knee injury and possible meniscal tear. Cellulitis of the left leg hypertension Diabetes mellitus Monitor vital signs Monitor CBC Monitor CMP Continue wound care Follow-up on blood cultures Continue pain management Continue pharmacy dose vancomycin follow-up in ID recs Follow-up in orthopedic recommendations. No surgical intervention as per orthopedic surgery.
--- NOTE | 2022-11-10 18:27 | P.PN ---
Subjective Progress Note Date: 11/10/22 72-year-old gentleman with past medical history significant for HTN, asthma,DMwho presented to the ER because of left knee pain. Patient stated that last week while ambulating in his house he was going down the stairs when he lost his footing and fell on his left knee. Following that patient started not icing worsening pain and swelling of his left knee. Patient was unable to bear weight as well. Because of worsening knee pain patient came to the ER, initial lab work done showed initial lab work done in the ER showed white count 5.3, hemoglobin 13.2, platelet count 202, sodium 140, potassium 4.7, BUN 21, creatinine 1.2 x-ray tibia-fibula showed no acute osseous abnormality of left tibia and fibula Duplex ultrasound negative for DVT of left lower extremity CT of left knee showed torn and extruded medial meniscus patient admitted for further evaluation and treatment 11/10/2022 --the patient remains to be afebrile, the patient has been complaining of significant pain to the left knee and leg area especially with ambulation , the patient denies chest pain shortness of breath or cough no abdominal pain or diarrhea 1patient presented to hospital with left knee and leg pain in this patient who did have a history of fall about 5 days ago and did have evidence of meniscal tear as seen on the CT with evidence of effusion and soft tissue swelling possibly related to trauma and hematoma underlying cellulitis left leg but not excluded especially to the left lower leg recently more erythematous and warm to touch 2- blood cultures so far negative, CRP mildly elevated 3Patient left lower extremity redness has decreased in intensity , at this point we are waiting for orthopedic reevaluation in view of persistent pain, patient to continue with the vancomycin and monitor kidney function closely Objective - Vital Signs Vital signs: Vital Signs Temp 97.8 F 11/10/22 07:42 Pulse 74 11/10/22 07:42 Resp 18 11/10/22 07:42 BP 147/88 11/10/22 07:42 Pulse Ox 95 11/10/22 07:42 FiO2 Intake & Output 11/09/22 11/10/22 11/10/22 18:59 06:59 18:59 Intake Total 354 236 Balance 354 236 Intake: Oral 354 236 Other: Voiding Method Toilet # Voids 3 1 1 # Bowel Movements 1 - Exam GENERAL: The patient is alert and oriented x3, not in any acute distress. Well developed, well nourished. HEENT: Pupils are round and equally reacting to light. EOMI. No scleral icterus. No conjunctival pallor. Normocephalic, atraumatic. No pharyngeal erythema. No thyromegaly. CARDIOVASCULAR: S1 and S2 present. No murmurs, rubs, or gallops. PULMONARY: Chest is clear to auscultation, no wheezing or crackles. ABDOMEN: Soft, nontender, nondistended, normoactive bowel sounds. No palpable organomegaly. MUSCULOSKELETAL:left knee tender,abrasion over left knee with bruising, erythema in the chapa area NEUROLOGICAL: Gross neurological examination did not reveal any focal deficits. SKIN: No rashes. - Labs CBC & Chem 7: 11/10/22 06:44 11/10/22 06:44 Labs: Abnormal Lab Results - Last 24 Hours (Table) 11/09/22 11/09/22 11/10/22 Range/Units 12:03 20:56 06:44 RBC (4.30-5.90) m/uL Hgb (13.0-17.5) gm/dL Hct (39.0-53.0) % BUN 21 H (9-20) mg/dL Glucose 112 H (74-99) mg/dL POC Glucose (mg/dL) 280 H 195 H (70-110) mg/dL 11/10/22 Range/Units 06:44 RBC 3.91 L (4.30-5.90) m/uL Hgb 12.0 L (13.0-17.5) gm/dL Hct 37.5 L (39.0-53.0) % BUN (9-20) mg/dL Glucose (74-99) mg/dL POC Glucose (mg/dL) (70-110) mg/dL Microbiology - Last 24 Hours (Table) 11/06/22 06:00 Blood Culture - Preliminary Blood Assessment and Plan Assessment: Fall from standing Left knee injury and possible meniscal tear. Cellulitis of the left leg hypertension Diabetes mellitus Monitor vital signs Monitor CBC Monitor CMP Continue wound care Follow-up on blood cultures Continue pain management Continue pharmacy dose vancomycin follow-up in ID recs Follow-up in orthopedic recommendations. No surgical intervention as per orthopedic surgery.
[2022-11-10 20:20] LABS: Glucose,Whole Blood 174 mg/dL (70-110)
[2022-11-11] MEDS: HYDROmorphone 1 MG/ML 1 ML SYRINGE IVP PRN ×3 (01:24→09:18)
[2022-11-11] MEDS: PANTOPRAZOLE 40 MG TABLET PO SCH (05:47)
[2022-11-11 05:48] LABS: Glucose,Whole Blood 126 mg/dL (70-110)
[2022-11-11] MEDS: INSULIN ASPART (NovoLOG) 100 UNIT/ML VIAL SQ SCH ×4 (06:27→20:31)
[2022-11-11] MEDS: metFORMIN 500 MG TAB PO SCH ×2 (09:20→20:19)
[2022-11-11] MEDS: lisinopriL 20 MG TAB PO SCH (09:20)
[2022-11-11] MEDS: GLIMEPIRIDE 2 MG TAB PO SCH (09:21)
[2022-11-11] MEDS: HEPARIN SODIUM,PORCINE/PF 5,000 UNIT/0.5 ML SYRINGE SQ SCH ×2 (09:21→20:20)
[2022-11-11] MEDS: amLODIPine 2.5 MG TAB PO SCH (09:21)
[2022-11-11] MEDS: PIOGLITAZONE 45 MG TAB PO SCH (09:21)
[2022-11-11 09:28] LABS: African American GFR (CKD) 58.6 (60.0-200.0); Anion Gap 11.3 mmol/L (10.00-18.00); BUN/Creat Ratio 18.43 Ratio (12.00-20.00); Blood Urea Nitrogen 25.8 mg/dL (9.0-27.0); C Reactive Protein 0.6 mg/dL (0.00-0.80); Calcium 9.2 mg/dL (8.7-10.3); Carbon Dioxide 24.7 mmol/L (20.0-27.5); Non-African American GFR(CKD) 50.5 (60.0-200.0); Potassium 5.2 mmol/L (3.5-5.5)
[2022-11-11] MEDS ORDERED: HYDROmorphone 0.5 MG/0.5 ML SYRINGE IVP PRN ×2 (10:34→14:12)
[2022-11-11 10:41] LABS: Basophils # (A) 0.04 X 10*3/uL (0.00-0.10); Basophils % (A) 0.8 %; Eosinophils # (A) 0.24 X 10*3/uL (0.04-0.35); Eosinophils % (A) 4.7 %; HCT 36.7 % (39.6-50.0); HGB 11.6 g/dL (13.0-17.0); Immature Grans, Automated 0.8 %; Lymphocytes # (A) 1.11 X 10*3/uL (0.90-5.00); Lymphocytes % (A) 21.9 %; MCH 30.9 pg (27.0-32.0); MCHC 31.6 g/dL (32.0-37.0); MCV 97.6 fL (80.0-97.0); Mean Platelet Volume 10.6 fL (9.5-12.2); Monocytes # (A) 0.51 X 10*3/uL (0.20-1.00); Monocytes % (A) 10.1 %; NRBC Per 100 WBC 0 /100 WBCS (0.0-0.0); Neutrophils # (A) 3.12 X 10*3/uL (1.80-7.70); Neutrophils % (A) 61.7 %; Platelet Count 207 X 10*3/uL (140-440); RBC 3.76 X 10*6/uL (4.40-5.60); RDW 14.6 % (11.5-14.5); WBC 5.06 X 10*3/uL (4.50-10.00)
[2022-11-11 11:35] VITALS: BMI 43.8
--- NOTE | 2022-11-11 11:35 | XR ---
EXAMINATION TYPE: XR tibia fibula LT DATE OF EXAM: 11/11/2022 COMPARISON: NONE HISTORY: Pain TECHNIQUE: Two views are submitted. FINDINGS: The osseous structures are intact. Narrowing of the medial compartment of the knee joint. Small calca santos spur noted.. IMPRESSION: 1. No acute osseous abnormality. Moderate osteoarthritis.
[2022-11-11 11:52] LABS: Glucose,Whole Blood 183 mg/dL (70-110)
[2022-11-11] MEDS: CAPSAICIN 0.025% CREAM 60 GM TUBE TOPICAL SCH ×3 (11:57→20:20)
[2022-11-11] MEDS: HYDROmorphone 0.5 MG/0.5 ML SYRINGE IVP PRN ×2 (14:26→21:39)
--- NOTE | 2022-11-11 14:26 | P.PN ---
Subjective 72-year-old gentleman with past medical history significant for HTN, asthma,DMwho presented to the ER because of left knee pain. Patient stated that last week while ambulating in his house he was going down the stairs when he lost his footing and fell on his left knee. Following that patient started noticing worsening pain and swelling of his left knee. Patient was unable to bear weight as well. Because of worsening knee pain patient came to the ER, initial lab work done showed initial lab work done in the ER showed white count 5.3, hemoglobin 13.2, platelet count 202, sodium 140, potassium 4.7, BUN 21, creatinine 1.2 x-ray tibia-fibula showed no acute osseous abnormality of left tibia and fibula Duplex ultrasound negative for DVT of left lower extremity CT of left knee showed torn and extruded medial meniscus patient admitted for further evaluation and treatment 11/10/2022 --the patient remains to be afebrile, the patient has been complaining of significant pain to the left knee and leg area especially with ambulation , the patient denies chest pain shortness of breath or cough no abdominal pain or diarrhea 1patient presented to hospital with left knee and leg pain in this patient who did have a history of fall about 5 days ago and did have evidence of meniscal tear as seen on the CT with evidence of effusion and soft tissue swelling possibly related to trauma and hematoma underlying cellulitis left leg but not excluded especially to the left lower leg recently more erythematous and warm to touch 2- blood cultures so far negative, CRP mildly elevated 3Patient left lower extremity redness has decreased in intensity , at this point we are waiting for orthopedic reevaluation in view of persistent pain, patient to continue with the vancomycin and monitor kidney function closely 11/11/2022 This is a pleasant 72 years old male who presents with fall about 7 days ago as he explained to me, he fell off his porch about 4 days prior to hospitalization and he hurt his left knee and left chapa. Currently he has a small area of mild pink erythema on the middle of his left chapa about 3-4 inches in length and 2-3 inches in diameter, it looks fading away however once I touch the skin patient complains from severe pain even without pressing on the bone. Also has been completed from the pain in his left knee, he has healed abrasion and almost closed wound. No open ulcer or purulent disch arge, no surrounding cellulitis, no swelling or deformity. Patient already evaluated by PT and recommended home, patient is still complaining of from severe pain 10/10 in his left knee and left leg, because of that x-rays was ordered showing no acute process. Orthopedic team already evaluated the patient and recommended outpatient follow- up. Also he is on IV vancomycin for his left leg cellulitis Which looks improving. I discussed the risks and benefits of narcotics for pain management including but not limited to the risk of respiratory depression,/, addiction and other medical side effects and he verbalized understanding and acceptance to take his medication, he is requesting IV Dilaudid, also he is on [place] 10 every 4 hours but he wants Dilaudid. I explained for the patient the need to taper down his pain medication and he is agreeable. I also explained for him goals of pain and alternative, be used. Over the patient started on topical capsaicin. Ultrasound of the left leg was negative for DVT and patient currently on subcu heparin. Possible discharge in 24-48 hours if he keeps improving Also we checked MAPS and he was recently on [place] 5 mg. He was prescribed 7 days worth of [place] 7.5 mg, on September 06, 2022, thereafter he was prescribed [place] 5 mg on 07/31/2022 for 90 days. No further narcotic prescribed for him prior to hospitalization for the system. Active Medications Generic Name Dose Route Start Last Admin Trade Name Freq PRN Reason Stop Dose Admin Acetaminophen 650 mg 11/04/22 17:19 Acetaminophen Tab 325 Mg Tab PO Q6HR PRN Mild Pain or Fever > 100.5 Hydrocodone Bitart/Acetaminophen 1 each 11/11/22 14:21 Hydrocodone/Apap 10-325mg 1 Each Tab PO Q6HR PRN Pain Amlodipine Besylate 2.5 mg 11/05/22 09:00 11/11/22 09:21 Amlodipine 2.5 Mg Tab PO 2.5 mg DAILY DAQUAN Administration Capsaicin 1 applic 11/11/22 10:45 11/11/22 11:57 Capsaicin 0.025% Cream 60 Gm Tube TOPICAL 1 applic TID DAQUAN Administration Protocol Dextrose/Water 25 ml 11/04/22 20:03 Dextrose 50% Syringe 50 Ml IVP PER PROTOCOL PRN Hypoglycemia Protocol Dextrose/Water 50 ml 11/04/22 20:03 Dextrose 50% Syringe 50 Ml IVP PER PROTOCOL PRN Hypoglycemia Protocol Glimepiride 2 mg 11/05/22 09:00 11/11/22 09:21 Glimepiride 2 Mg Tab PO 2 mg DAILY DAQUAN Administration Heparin Sodium (Porcine) 5,000 unit 11/04/22 21:00 11/11/22 09:21 Heparin Sodium,Porcine/Pf 5,000 Unit/0.5 Ml Syringe SQ 5,000 unit Q12HR DAQUAN Administration Hydromorphone HCl 0.5 mg 11/11/22 14:21 Hydromorphone 0.5 Mg/0.5 Ml Syringe IVP Q6HR PRN Severe Pain (Scale 7 to 10) Vancomycin HCl 2,000 mg/ 500 mls @ 167 mls/hr 11/09/22 18:00 11/10/22 18:14 Sodium Chloride IVPB 167 mls/hr Q24H DAQUAN Administration Insulin Aspart 0 unit 11/04/22 21:00 11/11/22 13:11 Insulin Aspart (Novolog) 100 Unit/Ml Vial SQ 2 unit ACHS DAQUAN Administration Protocol Lisinopril 20 mg 11/05/22 09:00 11/11/22 09:20 Lisinopril 20 Mg Tab PO 20 mg DAILY DAQUAN Administration Metformin HCl 1,000 mg 11/04/22 21:00 11/11/22 09:20 Metformin 500 Mg Tab PO 1,000 mg BID DAQUAN Administration Naloxone HCl 0.2 mg 11/04/22 17:19 Naloxone 0.4 Mg/Ml 1 Ml Vial IV Q2M PRN Opioid Reversal Ondansetron HCl 4 mg 11/04/22 20:04 Ondansetron 4 Mg/2 Ml Vial IVP Q6HR PRN Nausea And Vomiting Pantoprazole Sodium 40 mg 11/05/22 07:30 11/11/22 05:47 Pantoprazole 40 Mg Tablet PO 40 mg [id number] DAQUAN Administration Pioglitazone HCl 45 mg 11/05/22 09:00 11/11/22 09:21 Pioglitazone 45 Mg Tab PO 45 mg DAILY DAQUAN Administration Objective - Vital Signs Vital signs: Vital Signs Temp 97.8 F 11/11/22 14:00 Pulse 72 11/11/22 14:00 Resp 16 11/11/22 14:00 BP 145/81 11/11/22 14:00 Pulse Ox 98 11/11/22 14:00 FiO2 Intake & Output 11/10/22 11/11/22 11/11/22 18:59 06:59 18:59 Intake Total 354 236 Balance 354 236 Weight 127.006 kg Intake: Oral 354 236 Other: Voiding Method Toilet Toilet # Voids 1 2 2 - Exam GENERAL: The patient is alert and oriented x3, not in any acute distress. Well developed, well nourished. HEENT: Pupils are round and equally reacting to light. EOMI. No scleral icterus. No conjunctival pallor. Normocephalic, atraumatic. No pharyngeal erythema. No thyromegaly. CARDIOVASCULAR: S1 and S2 present. No murmurs, rubs, or gallops. PULMONARY: Chest is clear to auscultation, no wheezing or crackles. ABDOMEN: Soft, nontender, nondistended, normoactive bowel sounds. No palpable organomegaly. MUSCULOSKELETAL: No joint swelling or deformity. -EXTREMITIES: No cyanosis, clubbing, or pedal edema. Small area of cellulitis in the front of the left leg, with mild erythema no swelling, improving. Left knee with no swelling deformity, small abrasion which is improving. NEUROLOGICAL: Gross neurological examination did not reveal any focal deficits. SKIN: No rashes. no petechiae. - Labs CBC & Chem 7: 11/11/22 05:25 11/11/22 05:25 Labs: Abnormal Lab Results - Last 24 Hours (Table) 11/10/22 11/11/22 11/11/22 Range/Units 20:19 05:25 05:25 RBC 3.76 L (4.40-5.60) X 10*6/uL Hgb 11.6 L (13.0-17.0) g/dL Hct 36.7 L (39.6-50.0) % MCV 97.6 H (80.0-97.0) fL MCHC 31.6 L (32.0-37.0) g/dL RDW 14.6 H (11.5-14.5) % Est GFR (CKD-EPI)AfAm 58.6 L (60.0-200.0) Est GFR (CKD-EPI)NonAf 50.5 L (60.0-200.0) Glucose 125 H (70-110) mg/dL POC Glucose (mg/dL) 174 H (70-110) mg/dL 11/11/22 11/11/22 Range/Units 05:46 11:50 RBC (4.40-5.60) X 10*6/uL Hgb (13.0-17.0) g/dL Hct (39.6-50.0) % MCV (80.0-97.0) fL MCHC (32.0-37.0) g/dL RDW (11.5-14.5) % Est GFR (CKD-EPI)AfAm (60.0-200.0) Est GFR (CKD-EPI)NonAf (60.0-200.0) Glucose (70-110) mg/dL POC Glucose (mg/dL) 126 H 183 H (70-110) mg/dL Microbiology - Last 24 Hours (Table) 11/06/22 06:00 Blood Culture - Preliminary Blood Assessment and Plan Assessment: Fall from standing without syncope Left knee injury and possible meniscal tear. Cellulitis of the left leg, improving hypertension Diabetes mellitus Plan: Patient already evaluated by orthopedic team and cleared for discharge with medical recommendations to follow up with Dr. Escobedo in the office as an outpatient Patient was on opiates [place] 5 mg last prescribed about last July, currently he is on Dilaudid IV and [place] 10 mg orally, discussed the management of pain with the patient extensively and recommendation to disc related to his pain medication, he is agreeable. We will order to his IV Dilaudid 1 mg every 3 hours down to 0.5 mg every 6 hours and [place] 10-325 mg every 6 hours as needed. Add capsaixin Repeat x-ray of the left leg show no acute process ID team on the case, currently on IV vancomycin, monitor creatinine. Risk of nephrotoxicity explained for the patient Monitor creatinine Labs and medication were reviewed.. Continue same treatment. Continue with symptomatic treatment. Resume home medication. Monitor labs and vitals. DVT and GI prophylaxis. Further recommendations as per clinical course of the patient DVT prophylaxis: Subcutaneous heparin GI Prophylaxis: Ppi PT/OT: Home Prognosis is guarded
[2022-11-11] MEDS: HYDROcodone/APAP 10-325MG 1 EACH TAB PO PRN (16:32)
[2022-11-11 16:52] LABS: Glucose,Whole Blood 120 mg/dL (70-110)
[2022-11-11] MEDS: VANCOMYCIN 2,000 MG in SODIUM CHLORIDE 0.9% 500 ML 500 ML IVPB SCH (17:08)
[2022-11-12] MEDS: HYDROcodone/APAP 10-325MG 1 EACH TAB PO PRN ×3 (04:20→20:35)
[2022-11-12 07:18] LABS: Glucose,Whole Blood 118 mg/dL (70-110)
[2022-11-12] MEDS: INSULIN ASPART (NovoLOG) 100 UNIT/ML VIAL SQ SCH ×4 (07:20→20:35)
--- NOTE | 2022-11-12 07:29 | P.PN ---
Subjective Progress Note Date: 11/11/22 Principal diagnosis: Left leg cellulitis Patient is a 72-year-old male presented to hospital with left knee and lower leg pain swelling redness after follow-up patient did have a CT has been suggestive of torn and extruded medial meniscus, along with soft tissue swelling and small knee effusion, orthopedic recommended no surgical intervention On today's evaluation that is 11/11/2022, the patient denies any fever and chills, the patient still be complaining of pain to the left knee and leg area especially with ambulation and touching the affected area , the patient denies chest pain shortness of breath or cough no abdominal pain or diarrhea with antibiotic therapy Objective - Vital Signs Vital signs: Vital Signs Temp 97.9 F 11/11/22 07:13 Pulse 80 11/11/22 08:00 Resp 18 11/11/22 08:00 BP 141/62 11/11/22 07:13 Pulse Ox 96 11/11/22 07:13 FiO2 Intake & Output 11/10/22 11/11/22 11/11/22 18:59 06:59 18:59 Intake Total 354 118 Balance 354 118 Intake: Oral 354 118 Other: Voiding Method Toilet Toilet # Voids 1 2 - Exam GENERAL DESCRIPTION: An elderly male lying in bed in no distress RESPIRATORY SYSTEM: Unlabored breathing , decreased breath sounds at bases HEART: S1 S2 regular rate and rhythm , ABDOMEN: Soft , no tenderness EXTREMITIES: Left knee and lower extremity redness has decreased in intensity is forging press lever tender to touch - Labs CBC & Chem 7: 11/11/22 05:25 11/11/22 05:25 Labs: Abnormal Lab Results - Last 24 Hours (Table) 11/10/22 11/10/22 11/10/22 Range/Units 06:44 12:02 20:19 RBC 3.91 L (4.30-5.90) m/uL Hgb 12.0 L (13.0-17.5) gm/dL Hct 37.5 L (39.0-53.0) % MCV (80.0-97.0) fL MCHC (32.0-37.0) g/dL RDW (11.5-14.5) % Est GFR (CKD-EPI)AfAm (60.0-200.0) Est GFR (CKD-EPI)NonAf (60.0-200.0) Glucose (70-110) mg/dL POC Glucose (mg/dL) 154 H 174 H (70-110) mg/dL 11/11/22 11/11/22 11/11/22 Range/Units 05:25 05:25 05:46 RBC 3.76 L (4.30-5.90) m/uL Hgb 11.6 L (13.0-17.5) gm/dL Hct 36.7 L (39.0-53.0) % MCV 97.6 H (80.0-97.0) fL MCHC 31.6 L (32.0-37.0) g/dL RDW 14.6 H (11.5-14.5) % Est GFR (CKD-EPI)AfAm 58.6 L (60.0-200.0) Est GFR (CKD-EPI)NonAf 50.5 L (60.0-200.0) Glucose 125 H (70-110) mg/dL POC Glucose (mg/dL) 126 H (70-110) mg/dL Microbiology - Last 24 Hours (Table) 11/06/22 06:00 Blood Culture - Preliminary Blood Assessment and Plan (1) Left leg cellulitis Current Visit: Yes Status: Acute Code(s): L03.116 - CELLULITIS OF LEFT LOWER LIMB SNOMED Code(s): 298629572 Plan: 1patient presented to hospital with left knee and leg pain in this patient who did have a history of fall about 5 days ago and did have evidence of meniscal tear as seen on the CT with evidence of effusion and soft tissue swelling possibly related to trauma and hematoma underlying cellulitis left leg but not excluded especially to the left lower leg recently more erythematous and warm to touch 2- blood cultures so far negative, CRP mildly elevated 3Patient left lower extremity redness has decreased in intensity , x-rays of the left leg has been ordered results will be followed, we are waiting for orthopedic reevaluation in view of persistent pain, patient to continue with the vancomycin and monitor kidney function closely Time with Patient: Less than 30
[2022-11-12 08:17] LABS: African American GFR (CKD) 66 (>60 ml/min/1.73 sqM); Anion Gap 5 mmol/L; Blood Urea Nitrogen 26 mg/dL (9-20); Calcium 8.8 mg/dL (8.4-10.2); Carbon Dioxide 28 mmol/L (22-30); Chloride 104 mmol/L (98-107); Glucose 93 mg/dL (74-99); Non-African American GFR(CKD) 57 (>60 ml/min/1.73 sqM); Potassium 4.9 mmol/L (3.5-5.1); Sodium 137 mmol/L (137-145)
[2022-11-12] MEDS: metFORMIN 500 MG TAB PO SCH ×2 (09:50→20:35)
[2022-11-12] MEDS: PIOGLITAZONE 45 MG TAB PO SCH (09:50)
[2022-11-12] MEDS: HEPARIN SODIUM,PORCINE/PF 5,000 UNIT/0.5 ML SYRINGE SQ SCH ×2 (09:50→20:35)
[2022-11-12] MEDS: PANTOPRAZOLE 40 MG TABLET PO SCH (09:50)
[2022-11-12] MEDS: GLIMEPIRIDE 2 MG TAB PO SCH (09:50)
[2022-11-12] MEDS: amLODIPine 2.5 MG TAB PO SCH (09:50)
[2022-11-12] MEDS: lisinopriL 20 MG TAB PO SCH (09:50)
[2022-11-12] MEDS: CAPSAICIN 0.025% CREAM 60 GM TUBE TOPICAL SCH (09:52)
[2022-11-12] MEDS: HYDROmorphone 0.5 MG/0.5 ML SYRINGE IVP PRN ×2 (10:00→18:06)
[2022-11-12 12:16] LABS: Glucose,Whole Blood 146 mg/dL (70-110)
[2022-11-12 12:36] LABS: Glucose,Whole Blood 296 mg/dL (70-110)
[2022-11-12] MEDS: LIDOCAINE 4% CREAM 5 GM TUBE TOPICAL SCH ×2 (15:43→20:33)
[2022-11-12] MEDS ORDERED: VANCOMYCIN TROUGH DUE 1 EACH MISC MISCELLANE ONE (17:00)
--- NOTE | 2022-11-12 17:11 | P.PN ---
Subjective Progress Note Date: 11/12/22 Principal diagnosis: Left lower extremity pain We were asked by the internal medicine doctor to reevaluate the patient today. Patient was initially evaluated on 11/05/2022 by our orthopedic group. Patient apparently had a fall about a week prior landing on his left knee and chapa area. After initial evaluation, there was concern for left lower extremity cellulitis. Patient also had a abrasion over the anterior aspect of the knee in the prepatellar region. We have recommended conservative measures with regards to the left knee, this to include icing and elevating along with basic range of motion. Patient was also started on IV antibiotics. Patient was evaluated today at bedside, he is visualized sitting up with his knees over the edge of the bed. He does not seem to be in any acute pain while resting sitting. He is able to easily extend and bend the knee with minimal difficulty. He is able to get himself back into bed with minimal assistance. He does notice also discomfort over the area of redness in the distal chapa along with the abrasion over the anterior aspect of the knee. He denies any numbness and tingling of the extremity. Objective - Vital Signs Vital signs: Vital Signs Temp 98.3 F 11/12/22 14:00 Pulse 83 11/12/22 14:00 Resp 16 11/12/22 14:00 BP 160/84 11/12/22 14:00 Pulse Ox 96 11/12/22 14:00 FiO2 Intake & Output 11/11/22 11/12/22 11/12/22 18:59 06:59 18:59 Intake Total 236 236 Balance 236 236 Weight 127.006 kg Intake: Oral 236 236 Other: Voiding Method Toilet Toilet Toilet # Voids 2 1 4 # Bowel Movements 2 - Exam Left lower extremity: No obvious effusion present on the knee there is a notable size abrasion on the anterior aspect of the knee that involves the prepatellar region. There is no drainage from this area. There is mild erythema that surrounds those borders, there is some minor fluctuance appreciated in the prepatellar bursal region. There is mild erythema noted in the distal chapa, there is previous marker outline, the redness does stay inside those borders. No obvious fluctuance is appreciated in that area Compartments to the anterior, lateral, medial and posterior aspect of the extremity are soft and compressible Tenderness with palpation surrounding the prepatellar bursal region. He also is tender with palpation over the erythematous area in the distal chapa. Patient has no tenderness with palpation to the calf, foot/ankle. Patient is able to extend and flex the knee both passive and actively with minimal discomfort. Plantar flexion, dorsiflexion, EHL, FHL are intact. Logroll maneuver of the hip reproduces no groin pain Sensation to light touch throughout the extremity is intact Dorsalis pedis pulses 2+ - Labs CBC & Chem 7: 11/11/22 05:25 11/12/22 06:42 Labs: Abnormal Lab Results - Last 24 Hours (Table) 11/11/22 11/12/22 11/12/22 Range/Units 20:24 06:42 07:06 BUN 26 H (9-20) mg/dL Creatinine 1.26 H (0.66-1.25) mg/dL POC Glucose (mg/dL) 296 H 118 H (70-110) mg/dL 11/12/22 Range/Units 12:14 BUN (9-20) mg/dL Creatinine (0.66-1.25) mg/dL POC Glucose (mg/dL) 146 H (70-110) mg/dL Microbiology - Last 24 Hours (Table) 11/06/22 06:00 Blood Culture - Final Blood Assessment and Plan Assessment: Left lower extremity pain Left knee abrasion Left knee prepatellar bursitis Left lower extremity cellulitis Status post recent fall Other medical comorbidities Plan: I was able to discuss the case, this including both physical exam findings and imaging studies might attending Dr. Escobedo. No emergent orthopedic surgical intervention is recommended at this time. Patient has remained on IV antibiotics during his hospital stay. Initial labs d id show elevated CRP, this has returned to normal as of 11/11/2022. Patient's white blood cell count has been normal also. With abrasion that is present over the anterior aspect of the knee and into the prepatellar region, recommending no acute surgical intervention due to the risk of infection and wound complications. Could consider prepatellar bursectomy if the abrasion was to heal and he was to continue to show symptoms of a prepatellar bursitis. Recommending continuation of conservative measures, this including icing and elevating of the extremity. Also consider the use of a compression sleeve to the left lower extremity. DVT prophylaxis per primary medical service Other quality engineer medical device recommendations appreciated Orthopedically patient can follow-up in the outpatient setting, please contact our service there are any further questions Time with Patient: Less than 30
[2022-11-12 17:34] LABS: Glucose,Whole Blood 135 mg/dL (70-110)
[2022-11-12] MEDS: VANCOMYCIN 2,000 MG in SODIUM CHLORIDE 0.9% 500 ML 500 ML IVPB SCH (18:05)
[2022-11-12 19:54] LABS: Glucose,Whole Blood 186 mg/dL (70-110)
--- NOTE | 2022-11-13 02:34 | P.PN ---
Subjective 72-year-old gentleman with past medical history significant for HTN, asthma,DMwho presented to the ER because of left knee pain. Patient stated that last week while ambulating in his house he was going down the stairs when he lost his footing and fell on his left knee. Following that patient started noticing worsening pain and swelling of his left knee. Patient was unable to bear weight as well. Because of worsening knee pain patient came to the ER, initial lab work done showed initial lab work done in the ER showed white count 5.3, hemoglobin 13.2, platelet count 202, sodium 140, potassium 4.7, BUN 21, creatinine 1.2 x-ray tibia-fibula showed no acute osseous abnormality of left tibia and fibula Duplex ultrasound negative for DVT of left lower extremity CT of left knee showed torn and extruded medial meniscus patient admitted for further evaluation and treatment 11/10/2022 --the patient remains to be afebrile, the patient has been complaining of significant pain to the left knee and leg area especially with ambulation , the patient denies chest pain shortness of breath or cough no abdominal pain or diarrhea 1patient presented to hospital with left knee and leg pain in this patient who did have a history of fall about 5 days ago and did have evidence of meniscal tear as seen on the CT with evidence of effusion and soft tissue swelling possibly related to trauma and hematoma underlying cellulitis left leg but not excluded especially to the left lower leg recently more erythematous and warm to touch 2- blood cultures so far negative, CRP mildly elevated 3Patient left lower extremity redness has decreased in intensity , at this point we are waiting for orthopedic reevaluation in view of persistent pain, patient to continue with the vancomycin and monitor kidney function closely 11/11/2022 This is a pleasant 72 years old male who presents with fall about 7 days ago as he explained to me, he fell off his porch about 4 days prior to hospitalization and he hurt his left knee and left chapa. Currently he has a small area of mild pink erythema on the middle of his left chapa about 3-4 inches in length and 2-3 inches in diameter, it looks fading away however once I touch the skin patient complains from severe pain even without pressing on the bone. Also has been completed from the pain in his left knee, he has healed abrasion and almost closed wound. No open ulcer or purulent disch arge, no surrounding cellulitis, no swelling or deformity. Patient already evaluated by PT and recommended home, patient is still complaining of from severe pain 10/10 in his left knee and left leg, because of that x-rays was ordered showing no acute process. Orthopedic team already evaluated the patient and recommended outpatient follow- up. Also he is on IV vancomycin for his left leg cellulitis Which looks improving. I discussed the risks and benefits of narcotics for pain management including but not limited to the risk of respiratory depression,/, addiction and other medical side effects and he verbalized understanding and acceptance to take his medication, he is requesting IV Dilaudid, also he is on [place] 10 every 4 hours but he wants Dilaudid. I explained for the patient the need to taper down his pain medication and he is agreeable. I also explained for him goals of pain and alternative, be used. Over the patient started on topical capsaicin. Ultrasound of the left leg was negative for DVT and patient currently on subcu heparin. Possible discharge in 24-48 hours if he keeps improving Also we checked MAPS and he was recently on [place] 5 mg. He was prescribed 7 days worth of [place] 7.5 mg, on September 06, 2022, thereafter he was prescribed [place] 5 mg on 07/31/2022 for 90 days. No further narcotic prescribed for him prior to hospitalization for the system. 11/12/2022 Patient is seen and examined by me at bedside. Patient still complaining from pain in the left lower extremity, x-ray of the tibia and fibula yesterday were negative for acute osseous abnormality and showing moderate osteoarthritis. Patient pain was not controlled with IV Dilaudid as it is short-lived, therefore we will try to keep it more on oral and decrease the frequency of [place] 10 mg up to every 4 hours to achieve to the level and opened for better control of pain, this was discussed with the patient and he is agreeable. Risks and benefits of narcotics were explained for the patient extensively and he verbalized understanding and acceptance. Discussed with staff to ask for orthopedic follow-up for persistent pain History of phlebitis in the left leg is significantly improved compared to yesterday with less erythema and swelling. Patient remains on IV vancomycin per ID team Objective - Vital Signs Vital signs: Vital Signs Temp 98.3 F 11/12/22 07:39 Pulse 70 11/12/22 08:00 Resp 18 11/12/22 08:00 BP 143/83 11/12/22 07:39 Pulse Ox 94 L 11/12/22 07:39 FiO2 Intake & Output 11/11/22 11/12/22 11/12/22 18:59 06:59 18:59 Intake Total 236 118 Balance 236 118 Weight 127.006 kg Intake: Oral 236 118 Other: Voiding Method Toilet Toilet Toilet # Voids 2 1 - Exam GENERAL: The patient is alert and oriented x3, not in any acute distress. Well developed, well nourished. HEENT: Pupils are round and equally reacting to light. EOMI. No scleral icterus. No conjunctival pallor. Normocephalic, atraumatic. No pharyngeal erythema. No thyromegaly. CARDIOVASCULAR: S1 and S2 present. No murmurs, rubs, or gallops. PULMONARY: Chest is clear to auscultation, no wheezing or crackles. ABDOMEN: Soft, nontender, nondistended, normoactive bowel sounds. No palpable organomegaly. MUSCULOSKELETAL: No joint swelling or deformity. -EXTREMITIES: No cyanosis, clubbing, or pedal edema. Small area of cellulitis in the front of the left leg, with mild erythema no swelling, improving. Left knee with no swelling deformity, small abrasion which is improving. NEUROLOGICAL: Gross neurological examination did not reveal any focal deficits. SKIN: No rashes. no petechiae. - Labs CBC & Chem 7: 11/11/22 05:25 11/12/22 06:42 Labs: Abnormal Lab Results - Last 24 Hours (Table) 11/11/22 11/11/22 11/12/22 Range/Units 11:50 16:52 06:42 BUN 26 H (9-20) mg/dL Creatinine 1.26 H (0.66-1.25) mg/dL POC Glucose (mg/dL) 183 H 120 H (70-110) mg/dL 11/12/22 Range/Units 07:06 BUN (9-20) mg/dL Creatinine (0.66-1.25) mg/dL POC Glucose (mg/dL) 118 H (70-110) mg/dL Microbiology - Last 24 Hours (Table) 11/06/22 06:00 Blood Culture - Final Blood Assessment and Plan Assessment: Fall from standing without syncope Left knee injury and possible meniscal tear. Left Knee and leg pain mostly secondary to above. Rule out other causes Cellulitis of the left leg, improving hypertension Diabetes mellitus Plan: Patient already evaluated by orthopedic team and cleared for discharge with medical recommendations to follow up with Dr. Escobedo in the office as an outpatient. However we are asked for orthopedic follow-up today. Discussed the pain management with the patient, including goals of pain, risks and benefits of medication. We will target minutes on oral medication [place] every 4 hours. DC Dilaudid now. hoping for better pain control. Orthopedic team was consulted as well ID team on the case, currently on IV vancomycin, monitor creatinine. Risk of nephrotoxicity explained for the patient Monitor creatinine reconsult orthopedic team for persistent pain knee and lower extremity Labs and medication were reviewed.. Continue same treatment. Continue with symptomatic treatment. Resume home medication. Monitor labs and vitals. DVT and GI prophylaxis. Further recommendations as per clinical course of the patient DVT prophylaxis: Subcutaneous heparin GI Prophylaxis: Ppi PT/OT: Home Prognosis is guarded Discussed with staff and bedside nurse Plan of care discussed with patient as above and is agreeable
[2022-11-13] MEDS: HYDROcodone/APAP 10-325MG 1 EACH TAB PO PRN ×5 (04:13→21:09)
[2022-11-13] MEDS: PANTOPRAZOLE 40 MG TABLET PO SCH (05:47)
[2022-11-13 06:22] LABS: African American GFR (CKD) 64 (>60 ml/min/1.73 sqM); Anion Gap 7 mmol/L; Blood Urea Nitrogen 26 mg/dL (9-20); Calcium 9.2 mg/dL (8.4-10.2); Carbon Dioxide 30 mmol/L (22-30); Chloride 102 mmol/L (98-107); Glucose 112 mg/dL (74-99); Non-African American GFR(CKD) 55 (>60 ml/min/1.73 sqM); Potassium 5.1 mmol/L (3.5-5.1); Sodium 139 mmol/L (137-145)
[2022-11-13] MEDS: INSULIN ASPART (NovoLOG) 100 UNIT/ML VIAL SQ SCH ×4 (07:45→21:08)
[2022-11-13] MEDS: GLIMEPIRIDE 2 MG TAB PO SCH (08:13)
[2022-11-13] MEDS: PIOGLITAZONE 45 MG TAB PO SCH (08:13)
[2022-11-13] MEDS: amLODIPine 2.5 MG TAB PO SCH (08:13)
[2022-11-13] MEDS: metFORMIN 500 MG TAB PO SCH ×2 (08:13→21:08)
[2022-11-13] MEDS: HEPARIN SODIUM,PORCINE/PF 5,000 UNIT/0.5 ML SYRINGE SQ SCH ×2 (08:13→21:08)
[2022-11-13] MEDS: lisinopriL 20 MG TAB PO SCH (08:13)
[2022-11-13] MEDS: LIDOCAINE 4% CREAM 5 GM TUBE TOPICAL SCH ×3 (08:14→21:10)
[2022-11-13 09:33] LABS: Basophils # (A) 0.03 X 10*3/uL (0.00-0.10); Basophils % (A) 0.7 %; Eosinophils # (A) 0.23 X 10*3/uL (0.04-0.35); Eosinophils % (A) 5.1 %; HCT 40.5 % (39.6-50.0); HGB 12.4 g/dL (13.0-17.0); Immature Grans, Automated 0.9 %; Lymphocytes # (A) 1.05 X 10*3/uL (0.90-5.00); Lymphocytes % (A) 23.1 %; MCH 30.2 pg (27.0-32.0); MCHC 30.6 g/dL (32.0-37.0); MCV 98.5 fL (80.0-97.0); Mean Platelet Volume 10.5 fL (9.5-12.2); Monocytes # (A) 0.44 X 10*3/uL (0.20-1.00); Monocytes % (A) 9.7 %; NRBC Per 100 WBC 0 /100 WBCS (0.0-0.0); Neutrophils # (A) 2.75 X 10*3/uL (1.80-7.70); Neutrophils % (A) 60.5 %; Platelet Count 201 X 10*3/uL (140-440); RBC 4.11 X 10*6/uL (4.40-5.60); RDW 14.5 % (11.5-14.5); WBC 4.54 X 10*3/uL (4.50-10.00)
[2022-11-13 11:48] LABS: Glucose,Whole Blood 123 mg/dL (70-110)
--- NOTE | 2022-11-13 11:50 | P.NPCON ---
History of Present Illness - Reason for Consult chronic renal failure - History of Present Illness Reason for consultation: Chronic kidney disease History of present illness: Patient is a 72-year-old male seen in renal consultation for chronic kidney disease. Patient has chronic kidney disease stage patient came to the hospital after he sustained a fall on his porch and developed swelling in his left lower extremity. Computed tomography scan of the left knee showed torn an extruded medial meniscus. He's being followed by orthopedic surgery and is scheduled for MRI today. Denies vomiting or diarrhea. Oral intake is good. No hematuria. No chest pain or shortness of breath. He denies use of nonsteroidals. Patient states he was diagnosed with diabetes within the last 5 years. He is unsure of family history as he is adopted. Hemodynamically stable. Patient denies any active complaints at this time except for pain in his left knee. Vital signs are stable. General: No acute distress. HEENT: Head exam is unremarkable. LUNGS: No audible rhonchi or wheezes. HEART: Rate and Rhythm are regular. ABDOMEN: Obese. Nontender. EXTREMITITES: Left lower extremity tender to touch. No edema. Past Medical History Past Medical History: Asthma, Diabetes Mellitus, Hypertension History of Any Multi-Drug Resistant Organisms: None Reported Past Surgical History: Orthopedic Surgery Additional Past Surgical History / Comment(s): left shoulder, eye surgery Past Psychological History: No Psychological Hx Reported Smoking Status: Never smoker Past Alcohol Use History: None Reported Past Drug Use History: None Reported Medications and Allergies Home Medications Medication Instructions Recorded Confirmed Type Glimepiride [Amaryl] 2 mg PO DAILY 07/18/21 11/04/22 History Pioglitazone [Actos] 45 mg PO DAILY 07/18/21 11/04/22 History lisinopriL [Zestril] 20 mg PO DAILY 07/18/21 11/04/22 History amLODIPine [Norvasc] 2.5 mg PO DAILY 11/04/22 11/04/22 History metFORMIN HCL ER [Glucophage XR] 1,000 mg PO BID 11/04/22 11/04/22 History Allergies Allergy/AdvReac Type Severity Reaction Status Date / Time Penicillins Allergy Unknown Verified 11/04/22 18:10 Childhood Physical Exam Vitals: Vital Signs Temp Pulse Resp BP BP BP Pulse Ox 11/13/22 08:00 98.1 F 70 18 160/73 95 11/13/22 02:00 98.2 F 73 17 132/75 95 11/12/22 20:00 98.4 F 84 18 120/55 92 L 11/12/22 14:00 98.3 F 83 16 160/84 96 Intake and Output 11/12/22 11/13/22 11/13/22 22:59 06:59 14:59 Other: Voiding Method Toilet Toilet # Voids 1 Results - Lab Results Most recent lab results Calcium 9.2 mg/dL (8.4-10.2) 11/13/22 05:20 11/13/22 05:20 11/13/22 05:20 Assessment and Plan Plan: Assessment: 1. Chronic kidney disease stage IIIa with baseline creatinine 1.2-1.3. Suspect diabetic kidney disease. 2. Status post fall with torn left meniscus. Orthopedic surgery following. 3. Diabetes mellitus. 4. Hypertension with chronic kidney disease. Plan: Encourage oral intake. Check UA. Check renal ultrasound. Avoid nephrotoxins. Cleared for MRI from nephrology standpoint. Thank you for the consultation. I will continue to follow this patient with you during his hospital stay.
--- NOTE | 2022-11-13 12:11 | P.PN ---
Subjective Progress Note Date: 11/13/22 Principal diagnosis: Left lower extremity pain Patient evaluated today at bedside, he is resting comfortably sitting at the edge of the bed. He continues to state that he has severe pain throughout the left lower extremity. He notes most of the discomfort over the anterior aspect of the prepatellar region and then the lower chapa. Patient has been able to ambulate, he states that when he attempts to fully weight-bear he feels the pressure-like feeling throughout the extremity. He states that the [place] is not really doing much for his pain at this time. Patient remains afebrile at this time, he has a normal white count. Nephrology has okayed the MRI with and without contrast of the left lower extremity to include the knee. Patient will be going down a little bit later today for that test. Objective - Vital Signs Vital signs: Vital Signs Temp 98.1 F 11/13/22 08:00 Pulse 70 11/13/22 08:00 Resp 18 11/13/22 08:00 BP 160/73 11/13/22 08:00 Pulse Ox 95 11/13/22 08:00 FiO2 Intake & Output 11/12/22 11/13/22 11/13/22 18:59 06:59 18:59 Intake Total 236 Balance 236 Intake: Oral 236 Other: Voiding Method Toilet Toilet Toilet # Voids 4 1 # Bowel Movements 2 - Exam Left lower extremity: No obvious effusion present on the knee there is a notable size abrasion on the anterior aspect of the knee that involves the prepatellar region. There is no drainage from this area. There is mild erythema that surrounds those borders, there is some minor fluctuance appreciated in the prepatellar bursal region. There is mild erythema noted in the distal chapa, there is previous marker outline, the redness does stay inside those borders. No obvious fluctuance is appreciated in that area Compartments to the anterior, lateral, medial and posterior aspect of the extremity are soft and compressible Tenderness with palpation surrounding the prepatellar bursal region. He also is tender with palpation over the erythematous area in the distal chapa. Patient has no tenderness with palpation to the calf, foot/ankle. Patient is able to extend and flex the knee both passive and actively with minimal discomfort. Plantar flexion, dorsiflexion, EHL, FHL are intact. Logr oll maneuver of the hip reproduces no groin pain Sensation to light touch throughout the extremity is intact Dorsalis pedis pulses 2+ - Labs CBC & Chem 7: 11/13/22 05:20 11/13/22 05:20 Labs: Abnormal Lab Results - Last 24 Hours (Table) 11/11/22 11/12/22 11/12/22 Range/Units 20:24 12:14 17:32 RBC (4.40-5.60) X 10*6/uL Hgb (13.0-17.0) g/dL MCV (80.0-97.0) fL MCHC (32.0-37.0) g/dL BUN (9-20) mg/dL Creatinine (0.66-1.25) mg/dL Glucose (74-99) mg/dL POC Glucose (mg/dL) 296 H 146 H 135 H (70-110) mg/dL 11/12/22 11/13/22 11/13/22 Range/Units 19:52 05:20 05:20 RBC 4.11 L (4.40-5.60) X 10*6/uL Hgb 12.4 L (13.0-17.0) g/dL MCV 98.5 H (80.0-97.0) fL MCHC 30.6 L (32.0-37.0) g/dL BUN 26 H (9-20) mg/dL Creatinine 1.31 H (0.66-1.25) mg/dL Glucose 112 H (74-99) mg/dL POC Glucose (mg/dL) 186 H (70-110) mg/dL 11/13/22 Range/Units 11:44 RBC (4.40-5.60) X 10*6/uL Hgb (13.0-17.0) g/dL MCV (80.0-97.0) fL MCHC (32.0-37.0) g/dL BUN (9-20) mg/dL Creatinine (0.66-1.25) mg/dL Glucose (74-99) mg/dL POC Glucose (mg/dL) 123 H (70-110) mg/dL Microbiology - Last 24 Hours (Table) 11/06/22 06:00 Blood Culture - Final Blood Assessment and Plan Assessment: Left lower extremity pain Left knee abrasion Left knee prepatellar bursitis Left lower extremity cellulitis Left knee osteoarthritis Status post recent fall Other medical comorbidities Plan: Awaiting results of the MRI with and without contrast left lower extremity Recommending continuation of conservative measures, this including icing and elevating of the extremity. Recommending prescription for a thigh-high compression stocking DVT prophylaxis per primary medical service Other medical data entry clerk recommendations appreciated Further recommendations to follow Time with Patient: Less than 30
--- NOTE | 2022-11-13 14:53 | US ---
EXAMINATION TYPE: US kidneys/renal and bladder DATE OF EXAM: 11/13/2022 COMPARISON: NONE CLINICAL INDICATION: Male, 72 years old with history of ckd; CKD EXAM MEASUREMENTS: Right Kidney: 10.4 x 5.1 x 4.6 cm Left Kidney: 11.2 x 5.7 x 4.5 cm Multiple grayscale ultrasound images of the kidneys and urinary bladder were obtained. Right Kidney: cystic area upper pole = 9.2 x 7.3 x 8.5cm Left Kidney: no evidence of hydronephrosis Bladder: not fully distended Bilateral Jets seen: no There is no evidence for hydronephrosis at this point in time. No nephrolithiasis is seen. A superio r pole simple appearing thin walled cyst is identified measuring up to 9.2 cm. No solid masses are id entified. Cortical medullary differentiation is maintained bilaterally. The urinary bladder is anecho ic and not fully distended which limits evaluation. IMPRESSION: 1. No hydronephrosis or nephrolithiasis. 2. Right simple renal cyst measuring up to 9.2 cm.
[2022-11-13] MEDS ORDERED: HYDROmorphone 0.5 MG/0.5 ML SYRINGE IVP PRN (15:36)
[2022-11-13 17:38] LABS: Appearance,Urine Clear (Clear); Bilirubin,Urine Negative (Negative); Blood,Urine Negative (Negative); Color,Urine Light Yellow; Glucose,Urine (UA) Negative (Negative); Ketones,Urine Negative (Negative); Leukocyte Esterase,Urine Negative (Negative); Nitrite,Urine Negative (Negative); PH, Urine 6.5 (5.0-8.0); Protein,Urine Negative (Negative); Urobilinogen,Urine <2.0 mg/dL (<2.0)
[2022-11-13 17:54] LABS: Glucose,Whole Blood 111 mg/dL (70-110)
[2022-11-13] MEDS: VANCOMYCIN 2,000 MG in SODIUM CHLORIDE 0.9% 500 ML 500 ML IVPB SCH (18:05)
[2022-11-13] MEDS: DICLOFENAC SODIUM GEL 100 GM TUBE TOPICAL SCH ×2 (19:04→21:09)
--- NOTE | 2022-11-13 20:14 | P.PN ---
Subjective Progress Note Date: 11/13/22 72-year-old gentleman with past medical history significant for HTN, asthma,DMwho presented to the ER because of left knee pain. Patient stated that last week while ambulating in his house he was going down the stairs when he lost his footing and fell on his left knee. Following that patient started no ticing worsening pain and swelling of his left knee. Patient was unable to bear weight as well. Because of worsening knee pain patient came to the ER, initial lab work done showed initial lab work done in the ER showed white count 5.3, hemoglobin 13.2, platelet count 202, sodium 140, potassium 4.7, BUN 21, creatinine 1.2 x-ray tibia-fibula showed no acute osseous abnormality of left tibia and fibula Duplex ultrasound negative for DVT of left lower extremity CT of left knee showed torn and extruded medial meniscus patient admitted for further evaluation and treatment 11/10/2022 --the patient remains to be afebrile, the patient has been complaining of significant pain to the left knee and leg area especially with ambulation , the patient denies chest pain shortness of breath or cough no abdominal pain or diarrhea 1patient presented to hospital with left knee and leg pain in this patient who did have a history of fall about 5 days ago and did have evidence of meniscal tear as seen on the CT with evidence of effusion and soft tissue swelling possibly related to trauma and hematoma underlying cellulitis left leg but not excluded especially to the left lower leg recently more erythematous and warm to touch 2- blood cultures so far negative, CRP mildly elevated 3Patient left lower extremity redness has decreased in intensity , at this point we are waiting for orthopedic reevaluation in view of persistent pain, patient to continue with the vancomycin and monitor kidney function closely 11/11/2022 This is a pleasant 72 years old male who presents with fall about 7 days ago as he explained to me, he fell off his porch about 4 days prior to hospitalization and he hurt his left knee and left chapa. Currently he has a small area of mild pink erythema on the middle of his left chapa about 3-4 inches in length and 2-3 inches in diameter, it looks fading away however once I touch the skin patient complains from severe pain even without pressing on the bone. Also has been completed from the pain in his left knee, he has healed abrasion and almost closed wound. No open ulcer or purulent discharge, no surrounding cellulitis, no swelling or deformity. Patient already evaluated by PT and recommended home, patient is still complaining of from severe pain 10/10 in his left knee and left leg, because of that x-rays was ordered showing no acute process. Orthopedic team already evaluated the patient and recommended outpatient follow- up. Also he is on IV vancomycin for his left leg cellulitis Which looks improving. I discussed the risks and benefits of narcotics for pain management including but not limited to the risk of respiratory depression,/, addiction and other medical side effects and he verbalized understanding and acceptance to ta ke his medication, he is requesting IV Dilaudid, also he is on [place] 10 every 4 hours but he wants Dilaudid. I explained for the patient the need to taper down his pain medication and he is agreeable. I also explained for him goals of pain and alternative, be used. Over the patient started on topical capsaicin. Ultrasound of the left leg was negative for DVT and patient currently on subcu heparin. Possible discharge in 24-48 hours if he keeps improving Also we checked MAPS and he was recently on [place] 5 mg. He was prescribed 7 days worth of [place] 7.5 mg, on September 06, 2022, thereafter he was prescribed [place] 5 mg on 07/31/2022 for 90 days. No further narcotic prescribed for him prior to hospitalization for the system. 11/12/2022 Patient is seen and examined by me at bedside. Patient still complaining from pain in the left lower extremity, x-ray of the tibia and fibula yesterday were negative for acute osseous abnormality and showing moderate osteoarthritis. Patient pain was not controlled with IV Dilaudid as it is short-lived, therefore we will try to keep it more on oral and decrease the frequency of [place] 10 mg up to every 4 hours to achieve to the level and opened for better control of pain, this was discussed with the patient and he is agreeable. Risks and benefits of narcotics were explained for the patient extensively and he verbalized understanding and acceptance. Discussed with staff to ask for orthopedic follow-up for persistent pain History of phlebitis in the left leg is significantly improved compared to yesterday with less erythema and swelling. Patient remains on IV vancomycin per ID team 11/13/2022 Patient is seen and evaluated in follow-up with infectious disease and orthopedics following. Plan is for MRI of the left knee currently pending at this time. Patient continues to report significant pain that is uncontrolled and [place] has been increased to every 4 hours. Recommend limiting narcotic use IV and this has not been helping as well. Patient is being reevaluated by orthopedics currently recommending to continue with conservative management and await MRI results. Encouraged increased activity as tolerated and also instructed the patient to elevate this extremity frequently as he has been leaving it dependent at the side of the bed most of the day. Patient is continued on IV antibiotics with infectious disease following and will continue for now with concerns of left chapa cellulitis. Patient is afebrile denies chest pain or shortness of breath. Patient with chronic kidney disease although patient reports he does not have any kidney issues. Patient does have extensive diabetes and uses insulin at home. Review of systems: Constitutional: No reports of fatigue, fever, or chills Cardiovascular: No reports of chest pain or palpitations Respiratory: No reports of shortness of breath or cough GI: No reports of nausea, vomiting, or diarrhea : No reports of dysuria or retention Neurovascular: No reports of weakness or numbness report significant left lower extremity pain that is unrelieved with pain medications All medications have been reviewed Physical exam: GENERAL: The patient is alert and oriented x3, not in any acute distress. Well developed, well nourished. HEENT: Pupils are round and equally reacting to light. EOMI. No scleral icterus. No conjunctival pallor. Normocephalic, atraumatic. No pharyngeal erythema. No thyromegaly. CARDIOVASCULAR: S1 and S2 present. No murmurs, rubs, or gallops. PULMONARY: Chest is clear to auscultation, no wheezing or crackles. ABDOMEN: Soft, nontender, nondistended, normoactive bowel sounds. No palpable organomegaly. MUSCULOSKELETAL: No joint swelling or deformity. EXTREMITIES: No cyanosis, clubbing, or pedal edema. Small area of cellulitis in the front of the left leg chapa area, with mild erythema no swelling, improving. Left knee with no swelling deformity, small abrasion which is improving. NEUROLOGICAL: Gross neurological examination did not reveal any focal deficits. SKIN: No rashes. no petechiae. Assessment: Fall from standing without syncope Left knee injury and possible meniscal tear. Left Knee and leg pain mostly secondary to above. Rule out other causes Cellulitis of the left leg, improving chronic Kidney disease likely secondary to diabetes hypertension Diabetes mellitus Morbid obesity with a BMI of 43.9 GI prophylaxis DVT prophylaxis Full code Plan: Patient is been evaluated by orthopedics and being reevaluated as patient continues to report extensive severe 10/10 pain of his left lower extremity. Nephrology consultation placed to obtain clearance for MRI which is scheduled for today and currently pending Patient with significant diabetes with chronic kidney disease of outpatient repo rts he does not have any kidney issues was evaluated recommending okay for the MRI Recommend follow-up labs in a.m. Patient is continued on [place] 10 every 4 hours and per nursing staff is on the call light every 4 hours requesting it. Patient did have IV Dilaudid which as been discontinued and patient continues to report significant 10/10 pain. Will give 1 dose of 0.5 Dilaudid and discussed again about limiting the use of IV narcotics. Will refer to pain management and patient is going to need pain management outpatient Will await MRI results and discuss further with orthopedics about treatment plan moving forward Infectious disease is following and patient is maintained on IV antibiotics with concerns of left lower extremity cellulitis which is improving The impression and plan of care has been dictated by Ellen Adkins, Nurse Practitioner as directed. Dr. Galdino MD I have performed a history and examination and MDM of this patient, discussed the same with the dictator, and agree with the dictator's assessment and plan as written ,documented as a scribe. Based on total visit time, I have performed more than 50% of the visit. Objective - Vital Signs Vital signs: Vital Signs Temp 98.1 F 11/13/22 08:00 Pulse 70 11/13/22 08:00 Resp 18 11/13/22 08:00 BP 160/73 11/13/22 08:00 Pulse Ox 95 11/13/22 08:00 FiO2 Intake & Output 11/12/22 11/13/22 11/13/22 18:59 06:59 18:59 Intake Total 236 Balance 236 Intake: Oral 236 Other: Voiding Method Toilet Toilet # Voids 4 1 # Bowel Movements 2 - Labs CBC & Chem 7: 11/13/22 05:20 11/13/22 05:20 Labs: Abnormal Lab Results - Last 24 Hours (Table) 11/11/22 11/12/22 11/12/22 Range/Units 20:24 12:14 17:32 RBC (4.40-5.60) X 10*6/uL Hgb (13.0-17.0) g/dL MCV (80.0-97.0) fL MCHC (32.0-37.0) g/dL BUN (9-20) mg/dL Creatinine (0.66-1.25) mg/dL Glucose (74-99) mg/dL POC Glucose (mg/dL) 296 H 146 H 135 H (70-110) mg/dL 11/12/22 11/13/22 11/13/22 Range/Units 19:52 05:20 05:20 RBC 4.11 L (4.40-5.60) X 10*6/uL Hgb 12.4 L (13.0-17.0) g/dL MCV 98.5 H (80.0-97.0) fL MCHC 30.6 L (32.0-37.0) g/dL BUN 26 H (9-20) mg/dL Creatinine 1.31 H (0.66-1.25) mg/dL Glucose 112 H (74-99) mg/dL POC Glucose (mg/dL) 186 H (70-110) mg/dL Microbiology - Last 24 Hours (Table) 11/06/22 06:00 Blood Culture - Final Blood
--- NOTE | 2022-11-13 20:40 | MR ---
EXAMINATION TYPE: MR tib fib LT wo/w con DATE OF EXAM: 11/13/2022 COMPARISON: Radiograph 11/11/2022 HISTORY: 72-year-old male Fall, landed on Lt knee/leg, pain in leg more so near knee Technique: Multiplanar, multisequence images of the left tibia/fibula were obtained before and after administration of 13 mL intravenous Gadavist gadolinium contrast. FINDINGS: At the left knee, there is degenerative change particularly along the medial compartment with an extr uded appearing body of the medial meniscus secondary to a posterior root tear. [id number] knee joint effusion on both sides. There is a making small Ray cyst measuring 4.5 x 3.1 cm on the left and tiny, measuring 1.3 cm on the right. Mild generalized fatty infiltration of the leg musculature on both sides. On the left, there is a mild prepatellar bursitis measuring 6 mm thick. No acute or healing fracture is seen. Mild generalized muscle edema. However, there is some focal thickening located along the fascial plan e between the medial head gastrocnemius and soleus musculature at the proximal third to middle third leg level, for example, axial series 06/30/2000 image 12 and coronal series 301 image 25. IMPRESSION: 1. A small to moderate-sized leaking Ray's cyst measuring 4.5 x 3.1 cm. 2. Mild generalized muscle edema. Query any potential myositis or rhabdomyolysis. Findings may be due to generalized muscle strains or edema could be reactive to altered biomechanics. Clinically correla te. 3. Extruded medial meniscus secondary to posterior root tear. Medial compartmental OA. 4. Mild prepatellar bursitis and small to moderate knee joint effusion. No acute or healing fracture seen. 5. Some thickened, asymmetric signal interposed between the medial head gastrocnemius and soleus musc ulature at the proximal third and middle third leg. This is the region of the plantaris tendon. Consi tristin underlying plantaris tendon injury/tennis leg.
[2022-11-13 20:46] LABS: Glucose,Whole Blood 175 mg/dL (70-110)
[2022-11-14] MEDS: HYDROcodone/APAP 10-325MG 1 EACH TAB PO PRN ×4 (01:49→21:19)
[2022-11-14] MEDS: HEPARIN SODIUM,PORCINE/PF 5,000 UNIT/0.5 ML SYRINGE SQ SCH ×2 (07:55→19:57)
[2022-11-14] MEDS: metFORMIN 500 MG TAB PO SCH ×2 (07:55→19:57)
[2022-11-14] MEDS: PANTOPRAZOLE 40 MG TABLET PO SCH (07:56)
[2022-11-14] MEDS: PIOGLITAZONE 45 MG TAB PO SCH (07:56)
[2022-11-14] MEDS: GLIMEPIRIDE 2 MG TAB PO SCH (07:56)
[2022-11-14] MEDS: lisinopriL 20 MG TAB PO SCH (07:56)
[2022-11-14] MEDS: amLODIPine 2.5 MG TAB PO SCH (07:56)
[2022-11-14] MEDS: LIDOCAINE 4% CREAM 5 GM TUBE TOPICAL SCH ×3 (07:57→21:15)
[2022-11-14] MEDS: DICLOFENAC SODIUM GEL 100 GM TUBE TOPICAL SCH ×4 (08:06→21:15)
[2022-11-14] MEDS: INSULIN ASPART (NovoLOG) 100 UNIT/ML VIAL SQ SCH ×4 (09:35→20:04)
--- NOTE | 2022-11-14 10:14 | P.PN ---
Subjective Patient is seen in follow-up for chronic kidney disease. Renal function fairly stable this admission. Denies chest pain or shortness of breath. Oral intake is good. No vomiting or diarrhea. Hemodynamically stable. Vital signs are stable. General: No acute distress. HEENT: Head exam is unremarkable. LUNGS: No audible rhonchi or wheezes. HEART: Rate and Rhythm are regular. ABDOMEN: Soft, nontender. Obese. EXTREMITITES: No edema. Left lower extremity tender to touch. Objective - Vital Signs Vital signs: Vital Signs Temp 98.3 F 11/14/22 08:00 Pulse 71 11/14/22 08:00 Resp 18 11/14/22 08:00 BP 146/79 11/14/22 08:00 Pulse Ox 98 11/14/22 08:00 FiO2 Intake & Output 11/13/22 11/14/22 11/14/22 18:59 06:59 18:59 Intake Total 480 Balance 480 Intake: Oral 480 Other: Voiding Method Toilet Toilet Toilet # Voids 3 2 1 - Labs CBC & Chem 7: 11/13/22 05:20 11/13/22 05:20 Labs: Abnormal Lab Results - Last 24 Hours (Table) 11/13/22 11/13/22 11/13/22 Range/Units 11:44 17:49 20:44 POC Glucose (mg/dL) 123 H 111 H 175 H (70-110) mg/dL Assessment and Plan Plan: Assessment: 1. Chronic kidney disease stage IIIa with baseline creatinine 1.2-1.3. Suspect diabetic kidney disease. UA benign. No hydronephrosis noted on kidney ultrasound. 2. Status post fall with torn left meniscus. Orthopedic surgery following. 3. Diabetes mellitus. 4. Hypertension with chronic kidney disease. Plan: Encourage oral intake. Avoid nephrotoxins. Advised to follow up outpatient to establish CKD care.
[2022-11-14 11:30] LABS: Glucose,Whole Blood 138 mg/dL (70-110)
--- NOTE | 2022-11-14 13:19 | P.PN ---
Subjective Progress Note Date: 11/14/22 Principal diagnosis: Left lower extremity pain Patient evaluated today at bedside, he is resting comfortably in his hospital bed. Patient continues to have discomfort throughout the left lower extremity. He notes no worsening in severity compared to yesterday. He did have his MRI of the extremity done yesterday. Patient currently denies any numbness or tingling of the extremity or loss of sensation. He notes generalized discomfort surrounding the knee also trending down into the chapa area. He has been up and ambulating with minimal assistance. He denies any fevers or chills at this time. Objective - Vital Signs Vital signs: Vital Signs Temp 98.3 F 11/14/22 08:00 Pulse 71 11/14/22 08:00 Resp 18 11/14/22 08:00 BP 146/79 11/14/22 08:00 Pulse Ox 98 11/14/22 08:00 FiO2 Intake & Output 11/13/22 11/14/22 11/14/22 18:59 06:59 18:59 Intake Total 480 240 Balance 480 240 Intake: Oral 480 240 Other: Voiding Method Toilet Toilet Toilet # Voids 3 2 1 - Exam Left lower extremity: No obvious effusion present on the knee there is a notable size abrasion on the anterior aspect of the knee that involves the prepatellar region. There is no drainage from this area. The erythema that was present in the prepatellar bursa region and the lower chapa are much improved since yesterday. Compartments to the anterior, lateral, medial and posterior aspect of the extremity are soft and compressible Tenderness with palpation surrounding the prepatellar bursal region. He also is tender with palpation over the the distal chapa. Patient has no tenderness with palpation to the calf, foot/ankle. Patient is able to extend and flex the knee both passive and actively with minimal discomfort. Plantar flexion, dorsiflexion, EHL, FHL are intact. Logroll maneuver of the hip reproduces no groin pain Sensation to light touch throughout the extremity is intact Dorsalis pedis pulses 2+ - Labs CBC & Chem 7: 11/13/22 05:20 11/13/22 05:20 Labs: Abnormal Lab Results - Last 24 Hours (Table) 11/13/22 11/13/22 11/14/22 Range/Units 17:49 20:44 11:22 POC Glucose (mg/dL) 111 H 175 H 138 H (70-110) mg/dL Assessment and Plan Assessment: Left lower extremity pain Left knee abrasion Left knee prepatellar bursitis Left lower extremity cellulitis Left knee osteoarthritis Status post recent fall Other medical comorbidities Plan: MRI images and reports reviewed with Dr. Escobedo. No evidence of abscess present throughout the left lower extremity. Findings did demonstrate generalized edema throughout the lower leg musculature. Osteoarthritic findings were again noted involving the medial compartment, changes to the medial meniscus were also noted. A Ray cyst was present in the posterior aspect of the knee. No acute fractures were noted We continue to recommend no orthopedic surgical intervention at this time Patient continues to demonstrate hypersensitivity with light touch and palpation of the lower extremity. Does seem improved slightly compared to previous days. Explained to the patient the swelling in the extremity is likely due to the previous fall. Patient does have obvious pathology involving the leftt knee, nothing I feel that is contributing to his current symptoms. The prepatellar bursitis seems to be improving with conservative measures. Continuation of conservative measures, this including icing and elevating of the extremity. Prescription was placed for a thigh-high compression stocking at medium compression. DVT prophylaxis per primary medical service Other medical affairs director recommendations appreciated Orthopedics is signing off at this time, patient can follow-up in office in the next [address] Morris for recheck and evaluation. Please contact our service there are any further questions regarding this patient. Time with Patient: Less than 30
--- NOTE | 2022-11-14 13:27 | P.PN ---
Subjective Progress Note Date: 11/12/22 Principal diagnosis: Left leg cellulitis Patient is a 72-year-old male presented to hospital with left knee and lower leg pain swelling redness after follow-up patient did have a CT has been suggestive of torn and extruded medial meniscus, along with soft tissue swelling and small knee effusion, orthopedic recommended no surgical intervention On today's evaluation that is 11/12/2022, the patient remains to be afebrile, the patient has been complaining of pain to the left knee and leg area especially with ambulation and touching especially the left lower leg, the patient denies chest pain shortness of breath or cough no abdominal pain or diarrhea with antibiotic therapy Objective - Vital Signs Vital signs: Vital Signs Temp 98.3 F 11/12/22 07:39 Pulse 70 11/12/22 08:00 Resp 18 11/12/22 08:00 BP 143/83 11/12/22 07:39 Pulse Ox 94 L 11/12/22 07:39 FiO2 Intake & Output 11/11/22 11/12/22 11/12/22 18:59 06:59 18:59 Intake Total 236 118 Balance 236 118 Weight 127.006 kg Intake: Oral 236 118 Other: Voiding Method Toilet Toilet Toilet # Voids 2 1 - Exam GENERAL DESCRIPTION: An elderly male lying in bed in no distress RESPIRATORY SYSTEM: Unlabored breathing , decreased breath sounds at bases HEART: S1 S2 regular rate and rhythm , ABDOMEN: Soft , no tenderness EXTREMITIES: Left knee and lower extremity redness has decreased in intensity is rotoformer backtender to touch - Labs CBC & Chem 7: 11/13/22 05:20 11/13/22 05:20 Labs: Abnormal Lab Results - Last 24 Hours (Table) 11/11/22 11/11/22 11/12/22 Range/Units 11:50 16:52 06:42 BUN 26 H (9-20) mg/dL Creatinine 1.26 H (0.66-1.25) mg/dL POC Glucose (mg/dL) 183 H 120 H (70-110) mg/dL 11/12/22 Range/Units 07:06 BUN (9-20) mg/dL Creatinine (0.66-1.25) mg/dL POC Glucose (mg/dL) 118 H (70-110) mg/dL Microbiology - Last 24 Hours (Table) 11/06/22 06:00 Blood Culture - Final Blood Assessment and Plan (1) Left leg cellulitis Current Visit: Yes Status: Acute Code(s): L03.116 - CELLULITIS OF LEFT LOWER LIMB SNOMED Code(s): 494022011 Plan: 1patient presented to hospital with left knee and leg pain in this patient who did have a history of fall about 5 days ago and did have evidence of meniscal tear as seen on the CT with evidence of effusion and soft tissue swelling possibly related to trauma and hematoma underlying cellulitis left leg but not excluded especially to the left lower leg recently more erythematous and warm to touch 2- blood cultures so far negative, CRP mildly elevated 3Patient left lower extremity redness has decreased in intensity , x-rays of the left leg did not show any fracture, we are waiting for orthopedic reevaluation in view of persistent pain, patient to continue with the vancomycin and monitor kidney function closely, creatinine is 1.21 Time with Patient: Less than 30
--- NOTE | 2022-11-14 13:28 | P.PN ---
Subjective Progress Note Date: 11/13/22 Principal diagnosis: Left leg cellulitis Patient is a 72-year-old male presented to hospital with left knee and lower leg pain swelling redness after follow-up patient did have a CT has been suggestive of torn and extruded medial meniscus, along with soft tissue swelling and small knee effusion, orthopedic recommended no surgical intervention On today's evaluation that is 11/13/2022, the patient continues to be afebrile, the patient main symptom remains to be pain to the left knee and leg area especially with ambulation and touching especially the left lower leg, the patient denies chest pain shortness of breath or cough no abdominal pain or diarrhea with antibiotic therapy Objective - Vital Signs Vital signs: Vital Signs Temp 98.1 F 11/13/22 08:00 Pulse 70 11/13/22 08:00 Resp 18 11/13/22 08:00 BP 160/73 11/13/22 08:00 Pulse Ox 95 11/13/22 08:00 FiO2 Intake & Output 11/12/22 11/13/22 11/13/22 18:59 06:59 18:59 Intake Total 236 Balance 236 Intake: Oral 236 Other: Voiding Method Toilet Toilet # Voids 4 1 # Bowel Movements 2 - Exam GENERAL DESCRIPTION: An elderly male lying in bed in no distress RESPIRATORY SYSTEM: Unlabored breathing , decreased breath sounds at bases HEART: S1 S2 regular rate and rhythm , ABDOMEN: Soft , no tenderness EXTREMITIES: Left knee and lower extremity redness has decreased in intensity is top steep tender to touch - Labs CBC & Chem 7: 11/13/22 05:20 11/13/22 05:20 Labs: Abnormal Lab Results - Last 24 Hours (Table) 11/11/22 11/12/22 11/12/22 Range/Units 20:24 12:14 17:32 RBC (4.40-5.60) X 10*6/uL Hgb (13.0-17.0) g/dL MCV (80.0-97.0) fL MCHC (32.0-37.0) g/dL BUN (9-20) mg/dL Creatinine (0.66-1.25) mg/dL Glucose (74-99) mg/dL POC Glucose (mg/dL) 296 H 146 H 135 H (70-110) mg/dL 05/11/13/22 11/13/22 Range/Units 19:52 05:20 05:20 RBC 4.11 L (4.40-5.60) X 10*6/uL Hgb 12.4 L (13.0-17.0) g/dL MCV 98.5 H (80.0-97.0) fL MCHC 30.6 L (32.0-37.0) g/dL BUN 26 H (9-20) mg/dL Creatinine 1.31 H (0.66-1.25) mg/dL Glucose 112 H (74-99) mg/dL POC Glucose (mg/dL) 186 H (70-110) mg/dL Microbiology - Last 24 Hours (Table) 11/06/22 06:00 Blood Culture - Final Blood Assessment and Plan (1) Left leg cellulitis Current Visit: Yes Status: Acute Code(s): L03.116 - CELLULITIS OF LEFT LOWER LIMB SNOMED Code(s): 844540046 Plan: 1patient presented to hospital with left knee and leg pain in this patient who did have a history of fall about 5 days ago and did have evidence of meniscal tear as seen on the CT with evidence of effusion and soft tissue swelling possibly related to trauma and hematoma underlying cellulitis left leg but not excluded especially to the left lower leg recently more erythematous and warm to touch 2- blood cultures so far negative, CRP mildly elevated 3Patient left lower extremity redness has decreased in intensity , x-rays of the left leg did not show any fracture, patient has been evaluated by orthopedics and MRI has been ordered results will be followed, patient to continue with the vancomycin and careful monitor kidney function as creatinine is slightly elevated at 1.31 Time with Patient: Less than 30
--- NOTE | 2022-11-14 13:29 | P.PN ---
Subjective Progress Note Date: 11/14/22 Principal diagnosis: Left leg cellulitis Patient is a 72-year-old male presented to hospital with left knee and lower leg pain swelling redness after follow-up patient did have a CT has been suggestive of torn and extruded medial meniscus, along with soft tissue swelling and small knee effusion, orthopedic recommended no surgical intervention On today's evaluation that is 11/14/2022, the patient remains to be afebrile, the patient has been complaining of pain to the left knee and leg area especially with ambulation and touching some controlled with the pain medic ation, the patient denies chest pain shortness of breath or cough no abdominal pain or diarrhea with antibiotic therapy Objective - Vital Signs Vital signs: Vital Signs Temp 98.3 F 11/14/22 08:00 Pulse 71 11/14/22 08:00 Resp 18 11/14/22 08:00 BP 146/79 11/14/22 08:00 Pulse Ox 98 11/14/22 08:00 FiO2 Intake & Output 11/13/22 11/14/22 11/14/22 18:59 06:59 18:59 Intake Total 480 240 Balance 480 240 Intake: Oral 480 240 Other: Voiding Method Toilet Toilet Toilet # Voids 3 2 1 - Exam GENERAL DESCRIPTION: An elderly male lying in bed in no distress RESPIRATORY SYSTEM: Unlabored breathing , decreased breath sounds at bases HEART: S1 S2 regular rate and rhythm , ABDOMEN: Soft , no tenderness EXTREMITIES: Left knee and lower extremity redness has 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 - Labs CBC & Chem 7: 11/13/22 05:20 11/13/22 05:20 Labs: Abnormal Lab Results - Last 24 Hours (Table) 11/13/22 11/13/22 11/13/22 Range/Units 11:44 17:49 20:44 POC Glucose (mg/dL) 123 H 111 H 175 H (70-110) mg/dL 11/14/22 Range/Units 11:22 POC Glucose (mg/dL) 138 H (70-110) mg/dL Assessment and Plan (1) Left leg cellulitis Current Visit: Yes Status: Acute Code(s): L03.116 - CELLULITIS OF LEFT LOWER LIMB SNOMED Code(s): 711759606 Plan: 1patient presented to hospital with left knee and leg pain in this patient who did have a history of fall about 5 days ago and did have evidence of meniscal tear as seen on the CT with evidence of effusion and soft tissue swelling possibly related to trauma and hematoma underlying cellulitis left leg but not excluded especially to the left lower leg recently more erythematous and warm to touch 2- blood cultures so far negative, CRP mildly elevated 3Patient left lower extremity redness has decreased in intensity , x-rays of the left leg did not show any fracture, patient has been evaluated by orthopedics and MRI has been ordered results has been discussed with the patient did not recommending any surgical intervention at this point patient antibiotic will be switched over to oral doxycycline for a short course and a close outpati ent follow-up Time with Patient: Less than 30
--- NOTE | 2022-11-14 14:41 | P.PN ---
Subjective Progress Note Date: 11/14/22 72-year-old gentleman with past medical history significant for HTN, asthma,DMwho presented to the ER because of left knee pain. Patient stated that last week while ambulating in his house he was going down the stairs when he lost his footing and fell on his left knee. Following that patient started no ticing worsening pain and swelling of his left knee. Patient was unable to bear weight as well. Because of worsening knee pain patient came to the ER, initial lab work done showed initial lab work done in the ER showed white count 5.3, hemoglobin 13.2, platelet count 202, sodium 140, potassium 4.7, BUN 21, creatinine 1.2 x-ray tibia-fibula showed no acute osseous abnormality of left tibia and fibula Duplex ultrasound negative for DVT of left lower extremity CT of left knee showed torn and extruded medial meniscus patient admitted for further evaluation and treatment 11/10/2022 --the patient remains to be afebrile, the patient has been complaining of significant pain to the left knee and leg area especially with ambulation , the patient denies chest pain shortness of breath or cough no abdominal pain or diarrhea 1patient presented to hospital with left knee and leg pain in this patient who did have a history of fall about 5 days ago and did have evidence of meniscal tear as seen on the CT with evidence of effusion and soft tissue swelling possibly related to trauma and hematoma underlying cellulitis left leg but not excluded especially to the left lower leg recently more erythematous and warm to touch 2- blood cultures so far negative, CRP mildly elevated 3Patient left lower extremity redness has decreased in intensity , at this point we are waiting for orthopedic reevaluation in view of persistent pain, patient to continue with the vancomycin and monitor kidney function closely 11/11/2022 This is a pleasant 72 years old male who presents with fall about 7 days ago as he explained to me, he fell off his porch about 4 days prior to hospitalization and he hurt his left knee and left chapa. Currently he has a small area of mild pink erythema on the middle of his left chapa about 3-4 inches in length and 2-3 inches in diameter, it looks fading away however once I touch the skin patient complains from severe pain even without pressing on the bone. Also has been completed from the pain in his left knee, he has healed abrasion and almost closed wound. No open ulcer or purulent discharge, no surrounding cellulitis, no swelling or deformity. Patient already evaluated by PT and recommended home, patient is still complaining of from severe pain 10/10 in his left knee and left leg, because of that x-rays was ordered showing no acute process. Orthopedic team already evaluated the patient and recommended outpatient follow- up. Also he is on IV vancomycin for his left leg cellulitis Which looks improving. I discussed the risks and benefits of narcotics for pain management including but not limited to the risk of respiratory depression,/, addiction and other medical side effects and he verbalized understanding and acceptance to ta ke his medication, he is requesting IV Dilaudid, also he is on [place] 10 every 4 hours but he wants Dilaudid. I explained for the patient the need to taper down his pain medication and he is agreeable. I also explained for him goals of pain and alternative, be used. Over the patient started on topical capsaicin. Ultrasound of the left leg was negative for DVT and patient currently on subcu heparin. Possible discharge in 24-48 hours if he keeps improving Also we checked MAPS and he was recently on [place] 5 mg. He was prescribed 7 days worth of [place] 7.5 mg, on September 06, 2022, thereafter he was prescribed [place] 5 mg on 07/31/2022 for 90 days. No further narcotic prescribed for him prior to hospitalization for the system. 11/12/2022 Patient is seen and examined by me at bedside. Patient still complaining from pain in the left lower extremity, x-ray of the tibia and fibula yesterday were negative for acute osseous abnormality and showing moderate osteoarthritis. Patient pain was not controlled with IV Dilaudid as it is short-lived, therefore we will try to keep it more on oral and decrease the frequency of [place] 10 mg up to every 4 hours to achieve to the level and opened for better control of pain, this was discussed with the patient and he is agreeable. Risks and benefits of narcotics were explained for the patient extensively and he verbalized understanding and acceptance. Discussed with staff to ask for orthopedic follow-up for persistent pain History of phlebitis in the left leg is significantly improved compared to yesterday with less erythema and swelling. Patient remains on IV vancomycin per ID team 11/13/2022 Patient is seen and evaluated in follow-up with infectious disease and orthopedics following. Plan is for MRI of the left knee currently pending at this time. Patient continues to report significant pain that is uncontrolled and [place] has been increased to every 4 hours. Recommend limiting narcotic use IV and this has not been helping as well. Patient is being reevaluated by orthopedics currently recommending to continue with conservative management and await MRI results. Encouraged increased activity as tolerated and also instructed the patient to elevate this extremity frequently as he has been leaving it dependent at the side of the bed most of the day. Patient is continued on IV antibiotics with infectious disease following and will continue for now with concerns of left chapa cellulitis. Patient is afebrile denies chest pain or shortness of breath. Patient with chronic kidney disease although patient reports he does not have any kidney issues. Patient does have extensive diabetes and uses insulin at home. 11/14/2022 Patient is seen and evaluated in follow-up this morning continues to report significant 10/10 pain on the pain scale of his left lower extremity. Patient being followed by infectious disease along with orthopedics and IV vancomycin being transitioned oral doxycycline with close outpatient follow-up recommendations per infectious disease. Orthopedics evaluated the patient recommending no plans for surgical intervention an MRI was discussed in noted with the patient as there is some mild joint effusion of the left knee where he fell with a Ray cyst noted on MRI. Patient is currently afebrile denies chest pain or shortness of breath. Tolerating diet with no reports of nausea or vomiting noted. Patient is diabetic recommend continue monitoring Accu-Cheks before meals and at bedtime. Dilaudid has been discontinued and patient is maintained on [place] 10 every 4 hours as well as Voltaren gel. Encourage the patient to continue using ice and elevating left lower extremity while at rest. Encouraged increased activity as tolerated. Possible discharge in the next 24 hours. Review of systems: Constitutional: No reports of fatigue, fever, or chills Cardiovascular: No reports of chest pain or palpitations Respiratory: No reports of shortness of breath or cough GI: No reports of nausea, vomiting, or diarrhea : No reports of dysuria or retention Neurovascular: No reports of weakness or numbness report significant left lower extremity pain that is unrelieved with pain medications All medications have been reviewed Physical exam: GENERAL: The patient is alert and oriented x3, not in any acute distress. Well developed, well nourished. HEENT: Pupils are round and equally reacting to light. EOMI. No scleral icterus. No conjunctival pallor. Normocephalic, atraumatic. No pharyngeal erythema. No thyromegaly. CARDIOVASCULAR: S1 and S2 present. No murmurs, rubs, or gallops. PULMONARY: Chest is clear to auscultation, no wheezing or crackles. ABDOMEN: Soft, nontender, nondistended, normoactive bowel sounds. No palpable organomegaly. MUSCULOSKELETAL: No joint swelling or deformity. EXTREMITIES: No cyanosis, clubbing, or pedal edema. Small area of cellulitis in the front of the left leg chapa area, with mild erythema no swelling, improving. Left knee with no swelling deformity, small abrasion which is improving. NEUROLOGICAL: Gross neurological examination did not reveal any focal deficits. SKIN: No rashes. no petechiae. Assessment: Fall from standing without syncope Left knee injury and possible meniscal tear. Left Knee and leg pain mostly secondary to above. Possibly secondary to joint effusions and Ray cyst noted on MRI Cellulitis of the left leg, improving chronic Kidney disease likely secondary to diabetes hypertension Diabetes mellitus Morbid obesity with a BMI of 43.9 GI prophylaxis DVT prophylaxis Full code Plan: Patient has been evaluated by orthopedics once again recommending conservative management and no surgical interventions planned at this time recommending outpatient follow-up. Patient has been instructed to ice the area frequently and elevate while at rest MRI of the tibia-fibula was done which showed a [id number] sized leaking Ray's cyst measuring 4.5 x 3.1 cm with mild generalized muscle edema findings may be due to generalized muscle strains or edema, extruded medial meniscus s econdary to posterior root tear medial compartmental osteoarthritis, mild pre- patellar bursitis and small to moderate knee joint effusion with no acute or healing fractures noted to consider underlying plantaris tendon injury/tennis leg Patient is continued on [place] 10 every 4 hours and per nursing staff is on the call light every 4 hours requesting it. Have added Voltaren gel and again encourage the patient continue icing and elevating the lower extremity Will refer to pain management and patient is going to need pain management outpatient Infectious disease is following and patient is maintained on IV antibiotics in the form of vancomycin with concerns of left lower extremity cellulitis which is improving. Vancomycin is being discontinued and patient is being started on oral doxycycline Probable discharge in 24 hours The impression and plan of care has been dictated by Ellen Adkins, Nurse Practitioner as directed. Dr. Galdino MD I have performed a history and examination and MDM of this patient, discussed the same with the dictator, and agree with the dictator's assessment and plan as written ,documented as a scribe. Based on total visit time, I have performed more than 50% of the visit. Objective - Vital Signs Vital signs: Vital Signs Temp 98.3 F 11/14/22 08:00 Pulse 71 11/14/22 08:00 Resp 18 11/14/22 08:00 BP 146/79 11/14/22 08:00 Pulse Ox 98 11/14/22 08:00 FiO2 Intake & Output 11/13/22 11/14/22 11/14/22 18:59 06:59 18:59 Intake Total 480 360 Balance 480 360 Intake: Oral 480 360 Other: Voiding Method Toilet Toilet Toilet # Voids 3 2 1 - Labs CBC & Chem 7: 11/13/22 05:20 11/13/22 05:20 Labs: Abnormal Lab Results - Last 24 Hours (Table) 11/13/22 11/13/22 11/14/22 Range/Units 17:49 20:44 11:22 POC Glucose (mg/dL) 111 H 175 H 138 H (70-110) mg/dL
[2022-11-14 17:18] LABS: Glucose,Whole Blood 126 mg/dL (70-110)
[2022-11-14] MEDS: DOXYCYCLINE 100 MG CAP PO SCH (19:57)
[2022-11-14 19:58] LABS: Glucose,Whole Blood 169 mg/dL (70-110)
[2022-11-15] MEDS: HYDROcodone/APAP 10-325MG 1 EACH TAB PO PRN ×2 (02:18→08:23)
[2022-11-15] MEDS: PANTOPRAZOLE 40 MG TABLET PO SCH (06:11)
[2022-11-15 06:12] LABS: Glucose,Whole Blood 128 mg/dL (70-110)
[2022-11-15] MEDS: INSULIN ASPART (NovoLOG) 100 UNIT/ML VIAL SQ SCH ×2 (06:12→12:26)
[2022-11-15 07:17] LABS: African American GFR (CKD) 58 (>60 ml/min/1.73 sqM); Anion Gap 6 mmol/L; Blood Urea Nitrogen 28 mg/dL (9-20); Calcium 9.1 mg/dL (8.4-10.2); Carbon Dioxide 30 mmol/L (22-30); Chloride 102 mmol/L (98-107); Glucose 116 mg/dL (74-99); Non-African American GFR(CKD) 50 (>60 ml/min/1.73 sqM); Sodium 138 mmol/L (137-145)
[2022-11-15] MEDS: HEPARIN SODIUM,PORCINE/PF 5,000 UNIT/0.5 ML SYRINGE SQ SCH (08:23)
[2022-11-15] MEDS: amLODIPine 2.5 MG TAB PO SCH (08:23)
[2022-11-15] MEDS: DOXYCYCLINE 100 MG CAP PO SCH (08:23)
[2022-11-15] MEDS: PIOGLITAZONE 45 MG TAB PO SCH (08:23)
[2022-11-15] MEDS: lisinopriL 20 MG TAB PO SCH (08:23)
[2022-11-15] MEDS: metFORMIN 500 MG TAB PO SCH (08:24)
[2022-11-15] MEDS: DICLOFENAC SODIUM GEL 100 GM TUBE TOPICAL SCH ×2 (08:24→12:49)
[2022-11-15] MEDS: GLIMEPIRIDE 2 MG TAB PO SCH (08:24)
[2022-11-15] MEDS: LIDOCAINE 4% CREAM 5 GM TUBE TOPICAL SCH (08:25)
[2022-11-15 12:25] LABS: Glucose,Whole Blood 96 mg/dL (70-110)
--- NOTE | 2022-11-15 12:36 | P.PN ---
Subjective Patient is seen in follow-up for chronic kidney disease. Renal function fairly stable this admission. Denies chest pain or shortness of breath. Oral intake is good. No vomiting or diarrhea. Hemodynamically stable. Vital signs are stable. General: No acute distress. HEENT: Head exam is unremarkable. LUNGS: No audible rhonchi or wheezes. HEART: Rate and Rhythm are regular. ABDOMEN: Soft, nontender. Obese. EXTREMITITES: No edema. Left lower extremity tender to touch. Objective - Vital Signs Vital signs: Vital Signs Temp 97.7 F 11/15/22 07:20 Pulse 65 11/15/22 07:20 Resp 18 11/15/22 08:30 BP 148/74 11/15/22 07:20 Pulse Ox 95 11/15/22 07:20 FiO2 Intake & Output 11/14/22 11/15/22 11/15/22 18:59 06:59 18:59 Intake Total 600 180 Balance 600 180 Intake: Oral 600 180 Other: Voiding Method Toilet Toilet Toilet # Voids 1 3 - Labs CBC & Chem 7: 11/13/22 05:20 11/15/22 05:24 Labs: Abnormal Lab Results - Last 24 Hours (Table) 11/14/22 11/14/22 11/15/22 Range/Units 17:13 19:56 05:24 BUN 28 H (9-20) mg/dL Creatinine 1.41 H (0.66-1.25) mg/dL Glucose 116 H (74-99) mg/dL POC Glucose (mg/dL) 126 H 169 H (70-110) mg/dL 11/15/22 Range/Units 06:10 BUN (9-20) mg/dL Creatinine (0.66-1.25) mg/dL Glucose (74-99) mg/dL POC Glucose (mg/dL) 128 H (70-110) mg/dL Assessment and Plan Plan: Assessment: 1. Chronic kidney disease stage IIIa with baseline creatinine 1.2-1.3. Suspect diabetic kidney disease. UA benign. No hydronephrosis noted on kidney ultrasound. 2. Status post fall with torn left meniscus. Orthopedic surgery following. 3. Diabetes mellitus. 4. Hypertension with chronic kidney disease. Plan: Encourage oral intake. Avoid nephrotoxins. Increase dose of amlodipine. Advised to follow up outpatient to establish CKD care.
[2022-11-15 15:19] VITALS: BP 168/80; PULSE 84; RESP 16; TEMP 98
--- NOTE | 2022-11-15 15:56 | P.PN ---
Subjective Progress Note Date: 11/15/22 Principal diagnosis: Left leg cellulitis Patient is a 72-year-old male presented to hospital with left knee and lower leg pain swelling redness after follow-up patient did have a CT has been suggestive of torn and extruded medial meniscus, along with soft tissue swelling and small knee effusion, orthopedic recommended no surgical intervention On today's evaluation that is 11/15/2022, the patient continues to be afebrile, the patient still complaining of pain to the left knee and leg area however some controlled with the pain medication, the patient denies chest pain shortness of breath or cough no abdominal pain or diarrhea with antibiotic therapy Objective - Vital Signs Vital signs: Vital Signs Temp 97.7 F 11/15/22 07:20 Pulse 65 11/15/22 07:20 Resp 18 11/15/22 08:30 BP 148/74 11/15/22 07:20 Pulse Ox 95 11/15/22 07:20 FiO2 Intake & Output 11/14/22 11/15/22 11/15/22 18:59 06:59 18:59 Intake Total 600 180 Balance 600 180 Intake: Oral 600 180 Other: Voiding Method Toilet Toilet Toilet # Voids 1 3 - Exam GENERAL DESCRIPTION: An elderly male lying in bed in no distress RESPIRATORY SYSTEM: Unlabored breathing , decreased breath sounds at bases HEART: S1 S2 regular rate and rhythm , ABDOMEN: Soft , no tenderness EXTREMITIES: Left knee and lower extremity redness has resolved no open wound or drainage - Labs CBC & Chem 7: 11/13/22 05:20 11/15/22 05:24 Labs: Abnormal Lab Results - Last 24 Hours (Table) 11/14/22 11/14/22 11/15/22 Range/Units 17:13 19:56 05:24 BUN 28 H (9-20) mg/dL Creatinine 1.41 H (0.66-1.25) mg/dL Glucose 116 H (74-99) mg/dL POC Glucose (mg/dL) 126 H 169 H (70-110) mg/dL 11/15/22 Range/Units 06:10 BUN (9-20) mg/dL Creatinine (0.66-1.25) mg/dL Glucose (74-99) mg/dL POC Glucose (mg/dL) 128 H (70-110) mg/dL Assessment and Plan (1) Left leg cellulitis Status: Acute Code(s): L03.116 - CELLULITIS OF LEFT LOWER LIMB SNOMED Co de(s): 968062065 Plan: 1patient presented to hospital with left knee and leg pain in this patient who did have a history of fall about 5 days ago and did have evidence of meniscal tear as seen on the CT with evidence of effusion and soft tissue swelling pos sibly related to trauma and hematoma underlying cellulitis left leg but not excluded especially to the left lower leg recently more erythematous and warm to touch 2- blood cultures so far negative, CRP mildly elevated 3Patient left lower extremity redness has decreased in intensity , x-rays of the left leg did not show any fracture, patient has been evaluated by orthopedics and MRI has been ordered results has been discussed with the patient did not recommending any surgical intervention at this point, 4-patient has been advised short course of oral doxycycline on discharge prescriptions and the pharmacy discussed with the admitting team and close patient follow-up Time with Patient: Less than 30
[2022-11-16] MEDS ORDERED: amLODIPine 5 MG TAB PO SCH (09:00)
== END 2022-11-15 15:09 | disposition home health service (06) | DRG 603 ==
LOC: EC 13:03 → OBSVTOIN 17:13 → 6NMEDSUR 17:13
PROVIDERS: ADMIT Hospitalist; ATTEND Hospitalist
DX: L03.116 Cellulitis of left lower limb (principal); Z68.41 Body mass index [BMI] 40.0-44.9, adult; S83.242A Other tear of medial meniscus, current injury, left knee, initial encounter; I80.3 Phlebitis and thrombophlebitis of lower extremities, unspecified; E11.22 Type 2 diabetes mellitus with diabetic chronic kidney disease; N18.31 Chronic kidney disease, stage 3a; I12.9 Hypertensive chronic kidney disease with stage 1 through stage 4 chronic kidney disease, or unspecified chronic kidney disease; J45.909 Unspecified asthma, uncomplicated; E66.01 Morbid (severe) obesity due to excess calories; M25.462 Effusion, left knee; M17.12 Unilateral primary osteoarthritis, left knee; M70.42 Prepatellar bursitis, left knee; W17.89XA Other fall from one level to another, initial encounter; Y92.008 Other place in unspecified non-institutional (private) residence as the place of occurrence of the external cause; Z88.0 Allergy status to penicillin; Z79.899 Other long term (current) drug therapy; Z79.84 Long term (current) use of oral hypoglycemic drugs
CPT/HCPCS: 36415; 76770; 80048; 80053; 80202; 81003; 82550; 82565; 83036; 85025; 85027; 85610; 85730; 86140; 96372; 96374; 96375; 99285